=== PATIENT | female | born 1980 | race Two or more races ===

== ENCOUNTER 2019-11-03 07:00 | Inpatient (IN) | payer MEDICAID ==
[~2019-11-03] VITALS: Ht 157.5 cm; Wt 76.7 kg
--- NOTE | 2019-11-03 06:56 | NUR ---
Note luz in EDM - 11/03/19 at 0703 by QLE ED Nurse Note: Pt arrived with RA 829 c/o mid epigastric pain radiating to upper right quadrant and to back x 2 days with vomiting. per pt emesis was clear.
[2019-11-03 07:00] VITALS: BP 132/79
--- NOTE | 2019-11-03 07:00 | NUR ---
ED Nurse Note: Pt arrived with RA 829 c/o mid epigastric pain radiating to upper right quadrant and to back x 2 days with vomiting. per pt emesis was clear.
--- NOTE | 2019-11-03 07:04 | NUR ---
ED Nurse Note: Urine sample collected sent to lab
[2019-11-03] MEDS ORDERED: Mylanta II UD 30ml ORAL ONE (07:15)
[2019-11-03] MEDS ORDERED: Dicyclomine HCl 10mg/5ml oral soln ORAL ONE (07:15)
[2019-11-03] MEDS ORDERED: Lidocaine 2% Visc 15ml soln ORAL ONE (07:15)
[2019-11-03 07:42] LABS: APPEARANCE,URINE SLIGHTLY CLOUDY; BILIRUBIN, URINE NEGATIVE (NEGATIVE); GLUCOSE, URINE (UA) NEGATIVE (NEGATIVE); KETONES,URINE 4+ (NEGATIVE); LEUKOCYTE ESTERASE ,URINE 3+ (NEGATIVE); NITRITE,URINE NEGATIVE (NEGATIVE); PH,URINE 6 (4.5-8.0); PROTEIN,URINE 2+ (NEGATIVE); UROBILINOGEN,URINE 4 MG/DL (0.0-1.0)
[2019-11-03 07:45] LABS: COLOR,URINE YELLOW
[2019-11-03 07:47] LABS: EOSINOPHILS % (AUTO) 0.4 % (0.0-3.0); HEMATOCRIT 49.7 % (37.0-47.0); HEMOGLOBIN 15.7 G/DL (12.0-16.0); MEAN CORPUSCULAR VOLUME 99 FL (80-99); MONOCYTES % (AUTO) 7.1 % (1.0-10.0); NEUTROPHILS % (AUTO) 76.4 % (45.0-75.0); PLATELET COUNT 331 K/UL (150-450); RED BLOOD COUNT 4.99 M/UL (4.20-5.40); RED CELL DISTRIBUTION WIDTH 13.4 % (11.6-14.8); WHITE BLOOD COUNT 13.1 K/UL (4.8-10.8)
[2019-11-03 08:13] LABS: ALANINE AMINOTRANSFERASE 13 U/L (12-78); ALBUMIN 1.9 G/DL (3.4-5.0); ALBUMIN/GLOBULIN RATIO 0.6 (1.0-2.7); ALKALINE PHOSPHATASE 56 U/L (46-116); ANION GAP 12 mmol/L (5-15); ASPARTATE AMINO TRANSFERASE 19 U/L (15-37); BILIRUBIN,TOTAL 0.4 MG/DL (0.2-1.0); BLOOD UREA NITROGEN 10 mg/dL (7-18); CARBON DIOXIDE 16 MMOL/L (21-32); CHLORIDE 108 MMOL/L (98-107); CREATININE 0.4 MG/DL (0.55-1.30); POTASSIUM 3.2 MMOL/L (3.5-5.1); SODIUM 136 MMOL/L (136-145)
[2019-11-03] MEDS ORDERED: cefTRIAXone 1 GM in NS 55 ML IVPB ONE (08:15)
--- NOTE | 2019-11-03 08:16 | Emergency Room Report ---
History of Present Illness General Chief Complaint: Abdominal Pain Source: Patient Present Illness HPI 39-year-old female presents ED complaining of abdominal pain. Brought in by EMS from Street. States she is having the pain for the last 10 days. Epigastric, burning, 8 out of 10, nonradiating. Denies fevers or chills. Denies chest pain. Denies shortness of breath. Denies any diarrhea. Admits to alcohol use. No other aggravating relieving factors. Denies any other associated symptoms Allergies: Coded Allergies: No Known Allergies (Unverified , 11/03/19) COVID-19 Screening Contact w/high risk pt: No Recent Travel to affected area: No Experienced COVID-19 symptoms?: No COVID-19 Testing performed FOOD SERVER: No Patient History Past Medical History: none Past Surgical History: none Pertinent Family History: none Social History: Reports: alcohol use; Denies: smoking, drug use Now: No Immunizations: UTD Reviewed Nursing Documentation: PMH: Agreed; PSxH: Agreed Nursing Documentation-PMH Past Medical History: No Stated History Review of Systems All Other Systems: negative except mentioned in HPI Physical Exam Vital Signs Date Time Temp Pulse Resp B/P (MAP) Pulse Ox O2 Delivery O2 Flow Rate FiO2 11/03/19 06:55 98.2 124 18 132/79 (96) 99 Room Air Sp02 EP Interpretation: reviewed, normal General Appearance: no apparent distress, alert, GCS 15, non-toxic Head: normocephalic, atraumatic Eyes: bilateral eye normal inspection, bilateral eye PERRL ENT: hearing grossly normal, normal pharynx, no angioedema, normal voice Neck: full range of motion, supple/symm/no masses Respiratory: chest non-tender, lungs clear, normal breath sounds, speaking full sentences Cardiovascular #1: regular rate, rhythm, no edema Cardiovascular #2: 2+ carotid (R), 2+ carotid (L), 2+ radial (R), 2+ radial (L) , 2+ dorsalis pedis (R), 2+ dorsalis pedis (L) Gastrointestinal: normal bowel sounds, soft, non-distended, no guarding, no rebound, tenderness Rectal: deferred Genitourinary: normal inspection, no CVA tenderness Musculoskeletal: back normal, normal range of motion, gait/station normal, non- tender Neurologic: alert, motor strength/tone normal, oriented x3, sensory intact, responsive, speech normal Psychiatric: judgement/insight normal, memory normal, mood/affect normal, no suicidal/homicidal ideation Reflexes: 3+ bicep (R), 3+ bicep (L), 3+ tricep (R), 3+ tricep (L), 3+ knee (R) , 3+ knee (L) Skin: no rash Lymphatic: no adenopathy Medical Decision Making Diagnostic Impression: Primary Impression: Cholecystitis Additional Impression: UTI (urinary tract infection) Qualified Codes: N39.0 - Urinary tract infection, site not specified ER Course Hospital Course 39-year-old F presents to ED with epigastric/RUQ pain Differential diagnoses include: Appendicitis, cholecystitis, small bowel obstruction Clinical course Patient placed on stretcher. 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 After initial history and physical I ordered labs, IV fluids, UA, pain medication and Labs - leukocytosis noted, Hb/Hct stable. electrolytes ok. UA + bacteria Patient continues to have pain after medications given. CT ordered. CT shows any cholecystitis. Antibiotics given Dr Ojeda consulted Case discussed with Dr. Grey and he agreed to accept the patient to his service for further care and support I feel this is a highly complex case requiring extensive working including EKG/ Rhythm strip, Xray/CT/US, Blood/urine lab work, repeat exams while in ED, and administration of strong opiates/narcotics for pain control, admission to hospital or close patient follow up. Diagnosis - cholecystitis, UTI Patient admitted to hospital in serious condition Labs Test 11/03/19 07:05 11/03/19 07:41 White Blood Count 13.1 K/UL (4.8-10.8) Red Blood Count 4.99 M/UL (4.20-5.40) Hemoglobin 15.7 G/DL (12.0-16.0) Hematocrit 49.7 % (37.0-47.0) Mean Corpuscular Volume 99 FL (80-99) Mean Corpuscular Hemoglobin 31.5 PG (27.0-31.0) Mean Corpuscular Hemoglobin Concent 31.7 G/DL (32.0-36.0) Red Cell Distribution Width 13.4 % (11.6-14.8) Platelet Count 331 K/UL (150-450) Mean Platelet Volume 10.2 FL (6.5-10.1) Neutrophils (%) (Auto) 76.4 % (45.0-75.0) Lymphocytes (%) (Auto) 15.0 % (20.0-45.0) Monocytes (%) (Auto) 7.1 % (1.0-10.0) Eosinophils (%) (Auto) 0.4 % (0.0-3.0) Basophils (%) (Auto) 1.0 % (0.0-2.0) Urine Color Yellow Urine Appearance Slightly cloudy Urine pH 6 (4.5-8.0) Urine Specific [place] 1.025 (1.005-1.035) Urine Protein 2+ (NEGATIVE) Urine Glucose (UA) Negative (NEGATIVE) Urine Ketones 4+ (NEGATIVE) Urine Blood 2+ (NEGATIVE) Urine Nitrite Negative (NEGATIVE) Urine Bilirubin Negative (NEGATIVE) Urine Urobilinogen 4 MG/DL (0.0-1.0) Urine Leukocyte Esterase 3+ (NEGATIVE) Urine RBC 15-20 /HPF (0 - 2) Urine WBC Tntc /HPF (0 - 2) Urine Squamous Epithelial Cells Many /LPF (NONE/OCC) Urine Amorphous Sediment Few /LPF (NONE) Urine Bacteria Moderate /HPF (NONE) Urine Mucus Moderate /LPF (NONE/OCC) Urine HCG, Qualitative Negative (NEGATIVE) Sodium Level 136 MMOL/L (136-145) Potassium Level 3.2 MMOL/L (3.5-5.1) Chloride Level 108 MMOL/L (98-107) Carbon Dioxide Level 16 MMOL/L (21-32) Anion Gap 12 mmol/L (5-15) Blood Urea Nitrogen 10 mg/dL (7-18) Creatinine 0.4 MG/DL (0.55-1.30) Estimat Glomerular Filtration Rate > 60 mL/min (>60) Glucose Level 76 MG/DL (74-106) Calcium Level 6.0 MG/DL (8.5-10.1) Total Bilirubin 0.4 MG/DL (0.2-1.0) Aspartate Amino Transf (AST/SGOT) 19 U/L (15-37) Alanine Aminotransferase (ALT/SGPT) 13 U/L (12-78) Alkaline Phosphatase 56 U/L (46-116) Total Protein 5.3 G/DL (6.4-8.2) Albumin 1.9 G/DL (3.4-5.0) Globulin 3.4 g/dL Albumin/Globulin Ratio 0.6 (1.0-2.7) Lipase 74 U/L (73-393) CT/MRI/US Diagnostic Results CT/MRI/US Diagnostic Results : Imaging Test Ordered: CT A/P Impression Procedure: CT Abdomen Pelvis WO Contrast Indication: Abdominal pain Technique: Noncontrast CT of the abdomen and pelvis utilizing automated exposure control. Axial, sagittal and coronal reformats presented. CT dose: Total DLP 419.8 mGycm; CTDI vol 7.90 mGy Comparison: None Findings: Please note that evaluation of the abdominal and pelvic viscera and vascular structures is limited without the use of intravenous and oral contrast. Within these limitations the following observations are made: Dependent atelectatic changes noted in the lung bases. Heart size within normal limits. Partially imaged breast tissue appears grossly symmetric. There is a sizable gallstone which measures approximately 3 cm. There is mild gallbladder distention. There is also gallbladder wall thickening and pericholecystic inflammatory changes. No intrahepatic or extrahepatic biliary duct dilatation appreciated. Hepatic contour is smooth and liver appears normal in size. Noncontrast evaluation of the spleen, adrenal glands and pancreas grossly unremarkable. No peripancreatic inflammatory changes. Kidneys are symmetric in size. There is no urinary tract stone, hydronephrosis or perinephric stranding. Bladder and noncontrast evaluation of the reproductive organs grossly unremarkable. There is no free intraperitoneal air. There is no evidence of small bowel obstruction. The appendix is normal and there are no periappendiceal inflammatory changes. The abdominal aorta is normal in caliber. No acute osseous abnormality. IMPRESSION: Limited exam without intravenous and oral contrast. Within these limitations: * Cholelithiasis with gallbladder distention, gallbladder wall thickening and pericholecystic inflammatory changes suggesting acute cholecystitis. Correlation with clinical findings recommended. * No appreciable intrahepatic or extrahepatic biliary ductal dilatation. The CT scanner at [facility] is accredited by the [employer] and the scans are performed using protocols designed to limit radiation exposure to as low as reasonably achievable to attain images of sufficient resolution adequate for diagnostic evaluation. Last Vital Signs Date Time Temp Pulse Resp B/P (MAP) Pulse Ox O2 Delivery O2 Flow Rate FiO2 11/03/19 07:00 124 18 Room Air 11/03/19 07:00 98.2 132/79 99 Status: improved Disposition: ADMITTED INPATIENT Condition: Serious Scripts Cephalexin* (KEFLEX*) 500 Mg Capsule 500 MG ORAL EVERY 6 HOURS for 7 Days, CAP Prov: Brendan Mcelroy MD 11/03/19 Ondansetron Odt* (ZOFRAN ODT*) 4 Mg Tab.rapdis 4 MG BC EVERY 6 HOURS PRN for Nausea & Vomiting, #10 TAB 0 Refills Prov: Brendan Mcelroy MD 11/03/19 Famotidine* (Pepcid 20mg tablet*) 20 Mg Tablet 20 MG ORAL DAILY, #30 TAB 0 Refills Prov: Brendan Mcelroy MD 11/03/19 Acetaminophen* (TYLENOL EXTRA STRENGTH*) 500 Mg Tablet 500 MG ORAL Q8H PRN for Prn Headache/Temp > 101, #30 TAB 0 Refills Prov: Brendan Mcelroy MD 11/03/19 Referrals: NOT CHOSEN IPA/,REFERRING (PCP) Brendan Mcelroy MD Nov 03, 2019 08:16
[2019-11-03 08:52] VITALS: BP 155/83
[2019-11-03] MEDS ORDERED: CEPHALEXIN500 MG ORAL (09:07)
[2019-11-03] MEDS ORDERED: TYLENOL EXTRA500 MG ORAL (09:07)
[2019-11-03] MEDS ORDERED: FAMOTIDINE20 MG ORAL (09:07)
[2019-11-03] MEDS ORDERED: ONDANSETRON ODT4 MG BC (09:07)
--- NOTE | 2019-11-03 09:13 | NUR ---
6ER DISCHARGE NOTE: Patient is cleared to be discharged per ERMD, pt is aox4, on room air, with stable vital signs. pt was given dc and prescription instructions, pt was able to verbalize understanding, pt id band and iv site removed without complications. pt is able to ambulate with steady gait. pt took all belongings. pt given meal and drinks.
[2019-11-03] MEDS ORDERED: Ketorolac 30mg Inj IV ONE (09:15)
--- NOTE | 2019-11-03 09:28 | NUR ---
ED Nurse Note: Pt still reporting pain after dc, informed ermd.
[2019-11-03] MEDS ORDERED: Morphine Sulfate 2mg/ml Inj(IV/IM USE ONLY) IM ONE (09:30)
--- NOTE | 2019-11-03 09:44 | NUR ---
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
--- NOTE | 2019-11-03 10:04 | NUR ---
ED Nurse Note: Pt returned from CT
--- NOTE | 2019-11-03 10:28 | Diagnostic Imaging Report ---
Indication: Abdominal pain Technique: Noncontrast CT of the abdomen and pelvis utilizing automated exposure control. Axial, sagittal and coronal reformats presented. CT dose: Total DLP 419.8 mGycm; CTDI vol 7.90 mGy Comparison: None Findings: Please note that evaluation of the abdominal and pelvic viscera and vascular structures is limited without the use of intravenous and oral contrast. Within these limitations the following observations are made: Dependent atelectatic changes noted in the lung bases. Heart size within normal limits. Partially imaged breast tissue appears grossly symmetric. There is a sizable gallstone which measures approximately 3 cm. There is mild gallbladder distention. There is also gallbladder wall thickening and pericholecystic inflammatory changes. No intrahepatic or extrahepatic biliary duct dilatation appreciated. Hepatic contour is smooth and liver appears normal in size. Noncontrast evaluation of the spleen, adrenal glands and pancreas grossly unremarkable. No peripancreatic inflammatory changes. Kidneys are symmetric in size. There is no urinary tract stone, hydronephrosis or perinephric stranding. Bladder and noncontrast evaluation of the reproductive organs grossly unremarkable. There is no free intraperitoneal air. There is no evidence of small bowel obstruction. The appendix is normal and there are no periappendiceal inflammatory changes. The abdominal aorta is normal in caliber. No acute osseous abnormality. IMPRESSION: Limited exam without intravenous and oral contrast. Within these limitations: * Cholelithiasis with gallbladder distention, gallbladder wall thickening and pericholecystic inflammatory changes suggesting acute cholecystitis. Correlation with clinical findings recommended. * No appreciable intrahepatic or extrahepatic biliary ductal dilatation. The CT scanner at [facility] is accredited by the [employer] and the scans are performed using protocols designed to limit radiation exposure to as low as reasonably achievable to attain images of sufficient resolution adequate for diagnostic evaluation.
--- NOTE | 2019-11-03 10:39 | NUR ---
ED Nurse Note: Inserted new IV line; patent and intact.
[2019-11-03] MEDS ORDERED: Piperacillin/Tazobactam 3.375 GM in NS 110 ML IVPB ONE (11:30)
--- NOTE | 2019-11-03 13:08 | NUR ---
ED Nurse Note: Report given to Jose Charge nurse for continuity of care. CRN aware that pt is not to go to OR until COVID results return
--- NOTE | 2019-11-03 13:10 | NUR ---
TRANSFER TO FLOOR: Patient transferred to ms as ordered, per ermd. Report given to TERRY steele. Belongings and medications given to pt.
--- NOTE | 2019-11-03 13:15 | Consultation ---
DATE OF CONSULTATION: 11/03/2019 PREOPERATIVE CONSULTATION CONSULTING PHYSICIAN: Janey Ulloa MD REFERRING PHYSICIAN: ER physician, Dr. Mcelroy. REASON FOR CONSULTATION: Abdominal pain. HISTORY OF PRESENT ILLNESS: This is a 39-year-old female, who presented to emergency room complaining of abdominal pain for two days. She stated that pain is located in right upper quadrant with radiation to her back. This pain has been associated with nausea and vomiting. She denies any fever, cough, dysuria, or frequency. She denies any previous history of similar pain. She claims that she has history of jaundice. PAST MEDICAL HISTORY: She denies allergies, asthma, diabetes, hypertension, cardiac and renal diseases. PAST SURGICAL HISTORY: None. MEDICATIONS: None. SOCIAL HISTORY: The patient is a 39-year-old female, who is single without any children. She is unemployed and smokes and drinks occasionally and uses marijuana occasionally. REVIEW OF SYSTEMS: Noncontributory. PHYSICAL EXAMINATION: GENERAL: The patient appeared to be a 39-year-old female, lying on the gurney complaining of abdominal pain. HEENT: Head is normocephalic and atraumatic. Eyes, pupils are equal, round, and reactive to light. Mouth is clear. NECK: There is no palpable thyromegaly or adenopathy. CHEST: Clear to auscultation and percussion. HEART: There is no gallop or murmur. S1 and S2 are within normal limits. ABDOMEN: Mildly obese, but soft. She has severe tenderness at the right upper quadrant. There is no palpable organomegaly and bowel sounds are audible. GENITAL: Deferred. EXTREMITIES: Within normal limits. LABORATORY DATA: CBC has shown a WBC of 13,000 with a left shift. Chemistry is within normal limits. CAT scan of the abdomen has been interpreted as acute cholecystitis. ASSESSMENT: Cholecystitis and cholelithiasis. PLAN: The patient is severely tender and probably she has acute cholecystitis. So, the decision was made to perform a laparoscopic cholecystectomy, possible open cholecystectomy. The risks and benefits have been explained to her. She understood and granted consent for it. Janey Ulloa M.D. DR: BELLE JOB#: [id number] CC:
[2019-11-03 13:28] LABS: INR 1.1 (0.9-1.1)
--- NOTE | 2019-11-03 13:44 | General Progress Note ---
Assessment/Plan Problem List: (1) Cholecystitis ICD Codes: K81.9 - Cholecystitis, unspecified SNOMED: [id number] Assessment/Plan: npo ivf abx pain control pending surg today Subjective Allergies: Coded Allergies: No Known Allergies (Unverified , 11/03/19) Objective Last 24 Hour Vital Signs Date Time Temp Pulse Resp B/P (MAP) Pulse Ox O2 Delivery O2 Flow Rate FiO2 11/03/19 10:00 98.2 11/03/19 09:12 98.2 11/03/19 08:52 98.2 124 18 155/83 100 Room Air 11/03/19 07:00 124 18 Room Air 11/03/19 07:00 98.2 124 18 132/79 99 Room Air 11/03/19 06:55 98.2 124 18 132/79 (96) 99 Room Air Intake and Output 11/02/19 11/03/19 19:00 07:00 # Voids 1 Laboratory Tests 11/03/19 07:05: White Blood Count 13.1H, Red Blood Count 4.99, Hemoglobin 15.7, Hematocrit 49.7H , Mean Corpuscular Volume 99, Mean Corpuscular Hemoglobin 31.5H, Mean Corpuscular Hemoglobin Concent 31.7L, Red Cell Distribution Width 13.4, Platelet Count 331, Mean Platelet Volume 10.2H, Neutrophils (%) (Auto) 76.4H, Lymphocytes (%) (Auto) 15.0L, Monocytes (%) (Auto) 7.1, Eosinophils (%) (Auto) 0.4, Basophils (%) (Auto) 1.0, Urine Color Yellow, Urine Appearance Slightly cloudy, Urine pH 6, Urine Specific [place] 1.025, Urine Protein 2+H, Urine Glucose (UA) Negative, Urine Ketones 4+H, Urine Blood 2+H, Urine Nitrite Negative, Urine Bilirubin Negative, Urine Urobilinogen 4H, Urine Leukocyte Esterase 3+H, Urine RBC 15-20H, Urine WBC TntcH, Urine Squamous Epithelial Cells ManyH, Urine Amorphous Sediment FewH, Urine Bacteria ModerateH, Urine Mucus ModerateH, Urine HCG, Qualitative Negative 11/03/19 07:41: Sodium Level 136, Potassium Level 3.2L, Chloride Level 108H, Carbon Dioxide Level 16L, Anion Gap 12, Blood Urea Nitrogen 10, Creatinine 0.4L, Estimat Glomerular Filtration Rate > 60, Glucose Level 76, Calcium Level 6.0L, Total Bilirubin 0.4, Aspartate Amino Transf (AST/SGOT) 19, Alanine Aminotransferase ( ALT/SGPT) 13, Alkaline Phosphatase 56, Total Protein 5.3L, Albumin 1.9L, Globulin 3.4, Albumin/Globulin Ratio 0.6L, Lipase 74 11/03/19 12:55: Prothrombin Time [Pending], Prothromb Time International Ratio [Pending], Activated Partial Thromboplast Time [Pending] Height (Feet): 5 Height (Inches): 2.00 Weight (Pounds): 170 General Appearance: alert EENT: PERRL/EOMI Neck: normal alignment Cardiovascular: normal rate Respiratory/Chest: decreased breath sounds Abdomen: hypoactive bowel sounds, tender Extremities: non-tender Brandon Crane MD Nov 03, 2019 13:44
--- NOTE | 2019-11-03 14:00 | NUR ---
NURSE NOTES: Patient admitted from ER. PIV on right AC intact. No current complaints of pain. Admission orders confirmed with Dr. Grey. Bed low and locked, call light within reach. Will continue to monitor.
[2019-11-03] MEDS: D5NS 1,000 ML IV SCH (14:19)
--- NOTE | 2019-11-03 14:34 | NUR ---
CASE MANAGEMENT:NOTE SURGERY TODAY [facility]
[2019-11-03 16:00] VITALS: BP 125/68
[2019-11-03] MEDS: Morphine Sulfate 4mg/ml Inj (IV USE ONLY) IVP PRN ×2 (16:52→21:14)
--- NOTE | 2019-11-03 20:07 | NUR ---
HAND-OFF: Report given to Prince CRAIG. Pt is NPO post midnight for surgery tomorrow.
[2019-11-03 21:00] VITALS: BP 122/76
[2019-11-03] MEDS: Piperacillin/Tazobactam 3.375 GM in NS 110 ML IVPB SCH (21:15)
[2019-11-04] VITALS (13 sets, daily range): BP systolic 121–162; BP diastolic 64–97
[2019-11-04] MEDS: D5NS 1,000 ML IV SCH ×2 (00:19→09:53)
[2019-11-04] MEDS: Morphine Sulfate 4mg/ml Inj (IV USE ONLY) IVP PRN ×2 (02:01→07:01)
[2019-11-04] MEDS: Piperacillin/Tazobactam 3.375 GM in NS 110 ML IVPB SCH ×4 (06:31→21:18)
--- NOTE | 2019-11-04 07:19 | NUR ---
HAND-OFF: Report given to KIARA Camacho. Patient stable. Plan of care endorsed.
[2019-11-04 07:25] LABS: BASOPHILS % (AUTO) 0.8 % (0.0-2.0); EOSINOPHILS % (AUTO) 1.9 % (0.0-3.0); HEMATOCRIT 37.6 % (37.0-47.0); HEMOGLOBIN 12.2 G/DL (12.0-16.0); LYMPHOCYTES % (AUTO) 20.4 % (20.0-45.0); MEAN CORPUSCULAR VOLUME 99 FL (80-99); MONOCYTES % (AUTO) 8.5 % (1.0-10.0); NEUTROPHILS % (AUTO) 68.4 % (45.0-75.0); PLATELET COUNT 260 K/UL (150-450); WHITE BLOOD COUNT 7.7 K/UL (4.8-10.8)
--- NOTE | 2019-11-04 07:40 | NUR ---
NURSE NOTES: Received report from KIARA Morrison. Patient in bed, awake and alert. On room air, no signs of distress or labored breathing. IV intact, patent, and infusing IV antibiotics. Bed in lowest position with call light in reach. Will continue with plan of care.
[2019-11-04 07:58] LABS: ALANINE AMINOTRANSFERASE 28 U/L (12-78); ALBUMIN 2.3 G/DL (3.4-5.0); ALBUMIN/GLOBULIN RATIO 0.5 (1.0-2.7); ALKALINE PHOSPHATASE 90 U/L (46-116); ANION GAP 8 mmol/L (5-15); ASPARTATE AMINO TRANSFERASE 28 U/L (15-37); BILIRUBIN,TOTAL 0.4 MG/DL (0.2-1.0); BLOOD UREA NITROGEN 9 mg/dL (7-18); CARBON DIOXIDE 26 MMOL/L (21-32); CHLORIDE 103 MMOL/L (98-107); CHOLESTEROL 122 MG/DL (< 200); CREATININE 0.6 MG/DL (0.55-1.30); HDL CHOLESTEROL 40 MG/DL (40-60); POTASSIUM 3.7 MMOL/L (3.5-5.1); SODIUM 137 MMOL/L (136-145); TRIGLYCERIDES 53 MG/DL (30-150)
--- NOTE | 2019-11-04 09:49 | History & Physical ---
History and Physical History & Physicial seen and examined. Full Diction completed on 940 hours Sagrario Grey MD Nov 04, 2019 09:49
[2019-11-04] MEDS: Pantoprazole Inj IVP SCH (09:53)
--- NOTE | 2019-11-04 09:54 | General Progress Note ---
Assessment/Plan Assessment/Plan: A/P : 1- Sepsis 2- Acute cholecystitis Plan: C/w empiricall abx Will followup with surgical plan Subjective Allergies: Coded Allergies: No Known Allergies (Unverified , 11/03/19) Objective Last 24 Hour Vital Signs Date Time Temp Pulse Resp B/P (MAP) Pulse Ox O2 Delivery O2 Flow Rate FiO2 11/04/19 04:00 98.9 82 20 121/64 (83) 97 11/03/19 21:44 98.7 11/03/19 21:00 98.2 80 18 122/76 (91) 98 11/03/19 21:00 Room Air 11/03/19 16:00 98.7 77 18 125/68 (87) 97 11/03/19 13:57 98.2 79 17 137/86 100 Room Air 11/03/19 13:29 Room Air 11/03/19 10:00 98.2 Intake and Output 11/03/19 11/04/19 19:00 07:00 Intake Total 1165 ml Balance 1165 ml Intake IV Total 1165 ml # Voids 1 1 Laboratory Tests 11/03/19 12:55: Prothrombin Time 11.7H, Prothromb Time International Ratio 1.1, Activated Partial Thromboplast Time 35H 11/04/19 06:50: White Blood Count 7.7, Red Blood Count 3.80L, Hemoglobin 12.2, Hematocrit 37.6, Mean Corpuscular Volume 99, Mean Corpuscular Hemoglobin 32.1H, Mean Corpuscular Hemoglobin Concent 32.4, Red Cell Distribution Width 13.0, Platelet Count 260, Mean Platelet Volume 9.2, Neutrophils (%) (Auto) 68.4, Lymphocytes (%) (Auto) 20.4, Monocytes (%) (Auto) 8.5, Eosinophils (%) (Auto) 1.9, Basophils (%) (Auto ) 0.8, Sodium Level 137, Potassium Level 3.7, Chloride Level 103, Carbon Dioxide Level 26, Anion Gap 8, Blood Urea Nitrogen 9, Creatinine 0.6, Estimat Glomerular Filtration Rate > 60, Glucose Level 98, Hemoglobin A1c 5.5, Calcium Level 8.0#L, Total Bilirubin 0.4, Aspartate Amino Transf (AST/SGOT) 28, Alanine Aminotransferase (ALT/SGPT) 28, Alkaline Phosphatase 90, Total Protein 6.6, Albumin 2.3L, Globulin 4.3, Albumin/Globulin Ratio 0.5L, Triglycerides Level 53 , Cholesterol Level 122, LDL Cholesterol 66, HDL Cholesterol 40, Cholesterol/ HDL Ratio 3.1L Height (Feet): 5 Height (Inches): 2.00 Weight (Pounds): 169 Sagrario Grey MD Nov 04, 2019 09:54
--- NOTE | 2019-11-04 14:02 | Infectious Diseases Prog Note ---
Assessment/Plan Problems: (1) Cholecystitis Assessment & Plan: status post cholecystectomy continue Zosyn for now surgery is following (2) UTI (urinary tract infection) Assessment & Plan: with diphtheroids, ready on Zosyn Subjective Allergies: Coded Allergies: No Known Allergies (Unverified , 11/03/19) Objective Vital Signs Last 24 Hour Vital Signs Date Time Temp Pulse Resp B/P (MAP) Pulse Ox O2 Delivery O2 Flow Rate FiO2 11/04/19 08:00 98.2 84 18 123/74 (90) 97 11/04/19 04:00 98.9 82 20 121/64 (83) 97 11/03/19 21:44 98.7 11/03/19 21:00 98.2 80 18 122/76 (91) 98 11/03/19 21:00 Room Air 11/03/19 16:00 98.7 77 18 125/68 (87) 97 Height (Feet): 5 Height (Inches): 2.00 Weight (Pounds): 169 Microbiology Date/Time Source Procedure Growth Status 11/03/19 12:40 Nasopharynx SARS-CoV-2 RdRp Gene Assay - Final Complete 11/03/19 07:05 Urine,Clean Catch Urine Culture - Preliminary Diphtheroids Resulted Laboratory Tests Test 11/04/19 06:50 White Blood Count 7.7 K/UL (4.8-10.8) Red Blood Count 3.80 M/UL (4.20-5.40) L Hemoglobin 12.2 G/DL (12.0-16.0) Hematocrit 37.6 % (37.0-47.0) Mean Corpuscular Volume 99 FL (80-99) Mean Corpuscular Hemoglobin 32.1 PG (27.0-31.0) H Mean Corpuscular Hemoglobin Concent 32.4 G/DL (32.0-36.0) Red Cell Distribution Width 13.0 % (11.6-14.8) Platelet Count 260 K/UL (150-450) Mean Platelet Volume 9.2 FL (6.5-10.1) Neutrophils (%) (Auto) 68.4 % (45.0-75.0) Lymphocytes (%) (Auto) 20.4 % (20.0-45.0) Monocytes (%) (Auto) 8.5 % (1.0-10.0) Eosinophils (%) (Auto) 1.9 % (0.0-3.0) Basophils (%) (Auto) 0.8 % (0.0-2.0) Sodium Level 137 MMOL/L (136-145) Potassium Level 3.7 MMOL/L (3.5-5.1) Chloride Level 103 MMOL/L (98-107) Carbon Dioxide Level 26 MMOL/L (21-32) Anion Gap 8 mmol/L (5-15) Blood Urea Nitrogen 9 mg/dL (7-18) Creatinine 0.6 MG/DL (0.55-1.30) Estimat Glomerular Filtration Rate > 60 mL/min (>60) Glucose Level 98 MG/DL (74-106) Hemoglobin A1c 5.5 % (4.3-6.0) Calcium Level 8.0 MG/DL (8.5-10.1) #L Total Bilirubin 0.4 MG/DL (0.2-1.0) Aspartate Amino Transf (AST/SGOT) 28 U/L (15-37) Alanine Aminotransferase (ALT/SGPT) 28 U/L (12-78) Alkaline Phosphatase 90 U/L (46-116) Total Protein 6.6 G/DL (6.4-8.2) Albumin 2.3 G/DL (3.4-5.0) L Globulin 4.3 g/dL Albumin/Globulin Ratio 0.5 (1.0-2.7) L Triglycerides Level 53 MG/DL (30-150) Cholesterol Level 122 MG/DL (< 200) LDL Cholesterol 66 mg/dL (<100) HDL Cholesterol 40 MG/DL (40-60) Cholesterol/HDL Ratio 3.1 (3.3-4.4) L Current Medications Medications (Trade) Dose Ordered Sig/Misa Route PRN Reason Start Time Stop Time Status Last Admin Dose Admin Dextrose/Sodium Chloride 1,000 ml @ 100 mls/hr Q10H IV 11/03/19 14:19 12/03/19 14:18 11/03/19 14:19 Morphine Sulfate (Morphine Sulfate) 4 mg Q4H PRN IVP For Pain 11/03/19 14:15 11/10/19 14:14 11/04/19 07:01 Ondansetron HCl (Zofran) 4 mg Q6H PRN IVP Nausea & Vomiting 11/03/19 14:15 12/03/19 14:14 Pantoprazole (Protonix) 40 mg DAILY IVP 11/04/19 09:00 12/04/19 08:59 11/04/19 09:53 Piperacillin Sod/ Tazobactam Sod 3.375 gm/Sodium Chloride 110 ml @ 27.5 mls/hr Q8HR IVPB 11/03/19 22:00 11/10/19 21:59 11/04/19 06:31 Homa Silvestre M.D. Nov 04, 2019 14:02
--- NOTE | 2019-11-04 14:42 | NUR ---
NURSE NOTES: PATIENT IS OFF THE UNIT FOR SURGERY.
[2019-11-04] MEDS ORDERED: Midazolam 2mg/2ml Inj ONE (14:44)
[2019-11-04] MEDS ORDERED: fentaNYL 100 mcg/2 mL IV ONE (14:44)
[2019-11-04] MEDS ORDERED: Iothalamate Meglumine 60% 30ML INJ ONE (14:46)
--- NOTE | 2019-11-04 14:52 | Pre-Procedure Note/Attestation ---
Pre-Procedure Note/Attestation Complete Prior to Procedure Planned Procedure: not applicable Procedure Narrative: Laparoscopic cholecystectomy possible open cholcystectomy Indications for Procedure Pre-Operative Diagnosis: cholecystitis & cholelithiasis Attestation I attest that I discussed the nature of the procedure; its benefits; risks and complications; and alternatives (and the risks and benefits of such alternatives ), prior to the procedure, with the patient (or the patient's legal insurance claim representative). I attest that, if there was a reasonable possibility of needing a blood transfusion, the patient (or the patient's legal insurance claim representative) was given the [facility] standardized written summary, pursuant to the [facility] Blood Safety Act ([place] Health and Safety Code # 1645, as amended). I attest that I re-evaluated the patient just prior to the surgery and that there has been no change in the patient's H&P, except as documented below: Janey Ulloa MD Nov 04, 2019 14:52
[2019-11-04] MEDS ORDERED: Rocuronium Bromide 100mg/10ml Inj IV ONE (14:59)
[2019-11-04] MEDS ORDERED: NS Irrig 1000ml ONE (15:00)
[2019-11-04] MEDS ORDERED: Succinylcholine 20mg/ml 10ml vial ONE (15:00)
[2019-11-04] MEDS ORDERED: Sterile Water Irrig 1000ml IRRIG ONE (15:00)
[2019-11-04] MEDS ORDERED: Hydromorphone 0.5mg/0.5ml inj IVP PRN ×2 (15:30→17:00)
[2019-11-04] MEDS ORDERED: DiphenhydrAMINE 50mg/ml Inj IVP PRN (15:30)
[2019-11-04] MEDS ORDERED: fentaNYL 100 mcg/2 mL IV PRN (15:30)
[2019-11-04] MEDS ORDERED: LORazepam Inj 2mg/ml 1ml IV PRN (15:30)
[2019-11-04] MEDS ORDERED: Metoclopramide 10mg/2ml Inj IVP PRN ×2 (15:30→17:00)
[2019-11-04] MEDS ORDERED: Metoclopramide 10mg/2ml Inj ONE (15:36)
[2019-11-04] MEDS ORDERED: Glycopyrrolate 0.2mg/ml 1ml Vial ONE (15:36)
[2019-11-04] MEDS ORDERED: Lidocaine 1% MPF 10mg/ml 5ml ONE (15:36)
[2019-11-04] MEDS ORDERED: Neostigmine 1mg/ml 10ml Inj ONE (15:36)
--- NOTE | 2019-11-04 15:51 | Anethesia Preoperative Eval ---
Anesthesia Pre-op PMH/ROS General Date of Evaluation: Nov 04, 2019 Time of Evaluation: 14:50 Anesthesiologist: jennyfer ASA Score: ASA 2 Mallampati Score Class I : Soft palate, uvula, fauces, pillars visible Class II: Soft palate, uvula, fauces visible Class III: Soft palate, base of uvula visible Class IV: Only hard plate visible Mallampati Classification: Class II Surgeon: Atilio Diagnosis: cholecystitis Surgical Procedure: lap mayra Anesthesia History: none Social History: smoking, current smoker, alcohol use, drug use Family History: no anesthesia problems Allergies: Coded Allergies: No Known Allergies (Unverified , 11/03/19) Medications: see eMAR Patient NPO?: Yes NPO Date: Nov 04, 2019 NPO Time: 07:00 Past Medical History Cardiovascular: Denies: HTN, CAD, OR, valve dz, arrhythmia, other Pulmonary: Denies: asthma, COPD, LINDA, other Gastrointestinal/Genitourinary: Denies: GERD, CRI, ESRD, other Neurologic/Psychiatric: Denies: dementia, CVA, depression/anxiety, TIA, other Endocrine: Denies: DM, hypothyroidism, steroids, other HEENT: Denies: cataract (L), cataract (R), glaucoma, TUNUNAK (L), TUNUNAK (R), other Hematology/Immune: Denies: anemia, DVT, bleeding disorder, other Musculoskeletal/Integumentary: Denies: OA, RA, DJD, DDD, edema, other PSxH Narrative: c/section Anesthesia Pre-op Phys. Exam Physician Exam Last Vital Signs Date Time Temp Pulse Resp B/P (MAP) Pulse Ox O2 Delivery O2 Flow Rate FiO2 11/04/19 08:00 98.2 84 18 123/74 (90) 97 11/03/19 21:00 Room Air Constitutional: NAD Neurologic: CN 2-12 intact Cardiovascular: RRR Respiratory: CTA Gastrointestinal: S/NT/ND Airway Exam Mallampati Classification 2 Mallampati Score: Class II MO: full Neck: thick TMD: 2fb Teeth: missing, other - refused to take off nose piercing, tongue piercing and lip piercing x2; explained the risk Anesthesia Pre-op A/P Labs Hematology Test 11/04/19 06:50 White Blood Count 7.7 K/UL (4.8-10.8) Red Blood Count 3.80 M/UL (4.20-5.40) L Hemoglobin 12.2 G/DL (12.0-16.0) Hematocrit 37.6 % (37.0-47.0) Mean Corpuscular Volume 99 FL (80-99) Mean Corpuscular Hemoglobin 32.1 PG (27.0-31.0) H Mean Corpuscular Hemoglobin Concent 32.4 G/DL (32.0-36.0) Red Cell Distribution Width 13.0 % (11.6-14.8) Platelet Count 260 K/UL (150-450) Mean Platelet Volume 9.2 FL (6.5-10.1) Neutrophils (%) (Auto) 68.4 % (45.0-75.0) Lymphocytes (%) (Auto) 20.4 % (20.0-45.0) Monocytes (%) (Auto) 8.5 % (1.0-10.0) Eosinophils (%) (Auto) 1.9 % (0.0-3.0) Basophils (%) (Auto) 0.8 % (0.0-2.0) Chemistry Test 11/04/19 06:50 Sodium Level 137 MMOL/L (136-145) Potassium Level 3.7 MMOL/L (3.5-5.1) Chloride Level 103 MMOL/L (98-107) Carbon Dioxide Level 26 MMOL/L (21-32) Anion Gap 8 mmol/L (5-15) Blood Urea Nitrogen 9 mg/dL (7-18) Creatinine 0.6 MG/DL (0.55-1.30) Estimat Glomerular Filtration Rate > 60 mL/min (>60) Glucose Level 98 MG/DL (74-106) Hemoglobin A1c 5.5 % (4.3-6.0) Calcium Level 8.0 MG/DL (8.5-10.1) #L Total Bilirubin 0.4 MG/DL (0.2-1.0) Aspartate Amino Transf (AST/SGOT) 28 U/L (15-37) Alanine Aminotransferase (ALT/SGPT) 28 U/L (12-78) Alkaline Phosphatase 90 U/L (46-116) Total Protein 6.6 G/DL (6.4-8.2) Albumin 2.3 G/DL (3.4-5.0) L Globulin 4.3 g/dL Albumin/Globulin Ratio 0.5 (1.0-2.7) L Triglycerides Level 53 MG/DL (30-150) Cholesterol Level 122 MG/DL (< 200) LDL Cholesterol 66 mg/dL (<100) HDL Cholesterol 40 MG/DL (40-60) Cholesterol/HDL Ratio 3.1 (3.3-4.4) L Studies Pre-op Studies: EKG - Sr Risk Assessment & Plan Plan: General Pre-Antibiotics Drug: zosyn Given Within 1 Hr of Incision: Yes Time Given: 15:00 Jenna Anders SPORTS TEAM MANAGER Nov 04, 2019 15:51
--- NOTE | 2019-11-04 16:57 | NUR ---
CASE MANAGEMENT: INITIAL REVIEW 39YR OLD FEMALE BIBA FROM [facility] CC: ABDOMINAL PAIN X10 WEEKS SI: S/P LAPAROSCOPIC CHOLECYSTECTOMY CHOLECYSTITIS . UTI DIPHTHEROIDS 98.2 82 20 121/64 97% ON RA CA+ 6.0 K+3.2 CO2 16 ALB 1.9 IS:IV NS BOLUS X1 IV ROCEPHIN X1 IV ZOFRAN X1 IV PEPCID X1 BENTYL PO X1 LIDOCAINE PO X1 MYLANTA PO X1 IV TORADOL X1 IV MORPHINE SULFATE X1 CT Abdomen Pelvis WO Contrast-Cholelithiasis with gallbladder distention, gallbladder wall thickening and pericholecystic inflammatory changes suggesting acute cholecystitis. \: [facility] CASE MANAGEMENT: REVIEW 11/04/19 SI:CHOLECYSTITIS . UTI 98.9 82 20 121/64 97% ON RA CA+ 8.0 ALB 2.3 IS:IN SURGERY NOW CONSENT FOR LAPAROSCOPIC CHOLECYSTECTOMY, POSSIBLE OPEN CHOLECYSTECTOMY IV D5/NS @100ML/HR IV ZOSYN TID IV PROTONIX QD IV MORPHINE SULFATE Q4HR/PRN \: [facility]
[2019-11-04] MEDS ORDERED: HYDROmorphone 1mg/ml Carpuject IVP PRN (17:00)
[2019-11-04] MEDS ORDERED: Acetaminophen 650 MG SUPP RECTAL PRN (17:00)
--- NOTE | 2019-11-04 17:00 | Brief Operative Note ---
Immediate Post Operative Note Operative Note Pre-op Diagnosis: cholecystitis & cholelithiasis Procedure: Laparoscopic Cholecystectomy Post-op Diagnosis: impacted stone in neck of gall bladder Post-op Diagnosis: same as pre-op Findings: consistent w/pre-op dx studies Surgeon: MD Po E Commerce Manager: none Anesthesiologist: Jenna Boothe CRNA Anesthesia: general Specimen: yes Complications: none Condition: stable Fluids: per anesth. Estimated Blood Loss: volume - 40 ml Drains: none Implant(s) used?: No Janey Ulloa MD Nov 04, 2019 17:00
--- NOTE | 2019-11-04 17:17 | Immediate Post-Op Evaluation ---
Immediate Post-Op Evalulation Immediate Post-Op Evalulation Procedure: Lap Jannette Date of Evaluation: Nov 04, 2019 Time of Evaluation: 17:15 IV Fluids: 1000 Blood Products: 0 Estimated Blood Loss: 50 Urinary Output: 150 Blood Pressure Systolic: 150 Blood Pressure Diastolic: 30 Pulse Rate: 90 Respiratory Rate: 14 O2 Sat by Pulse Oximetry: 100 Temperature (Fahrenheit): 97.5 Nausea: No Vomiting: No Patient Status: awake, reacts, patent Hydration Status: adequate Drug: zosyn Given Within 1 Hr of Incision: Yes Time Given: 15:00 Jenna Anders CRNA Nov 04, 2019 17:17
--- NOTE | 2019-11-04 18:10 | NUR ---
NURSE NOTES: Received report from Fernanda Sesay RN from recovery. Patient back on the unit. Patient is on 3L/min nasal cannula, no signs of distress or labored breathing. VSS. Patient drifting in and put of consciousness. Oriented to person and place. Patient on SCDs. Patient can feel full sensation in bilateral upper and lower extremities. Patient has four lap sites, dry and intact. Will carry out post op orders and continue to monitor.
[2019-11-04] MEDS: D5 1/2NS w/KCl 20mEq 1,000 ML IV SCH (18:30)
--- NOTE | 2019-11-04 20:00 | History and Physical Report ---
DATE OF ADMISSION: 11/03/2019 SOURCE OF INFORMATION: The patient and EMR. HISTORY OF PRESENT ILLNESS: The patient is a 39-year-old female with history of obesity. The patient presented with worsening of abdominal pain in the right upper abdominal quadrant. Positive for nausea. Denies any vomiting or constipation. Positive for severe pain. ALLERGIES: NKDA. FAMILY HISTORY: Reviewed and noncontributory. MEDICATIONS: Current hospital medications including, but not limited to Zosyn. PAST MEDICAL HISTORY: Including obesity, GERD. PHYSICAL EXAMINATION: VITAL SIGNS: Blood pressure 130/80, temperature 98.2, pulse oximetry 98% on room air, respiratory rate 18. HEAD AND NECK: Atraumatic and normocephalic. CHEST: Clear to auscultation. HEART: S1, S2. Regular rate and rhythm. ABDOMEN: Soft. No organomegaly. MUSCULOSKELETAL: No gross lateralized motor deficit. Positive for Chapin signs. LABORATORY DATA: Labs dated November 02, WBC 13.1, hemoglobin 15.7, platelets 330,000. Sodium 136, potassium 3.2, creatinine 0.4. Albumin of 1.9. Wbc in the urine positive. IMAGING: Abdominopelvic CT scan shows cholelithiasis suggestive of acute cholecystitis. ASSESSMENT: 1. Acute cholecystitis. 2. Obesity. 3. UTI. 4. Sepsis. PLAN OF CARE: We will start the patient on IV antibiotic. We will send blood cultures. Surgeon notified. Sagrario Grey M.D. DR: HENRY JOB#: [id number] CC: SUSI
--- NOTE | 2019-11-04 20:00 | NUR ---
NURSE NOTES: Pt. received from KIARA Victoria. Pt. drowsy, alert to name, year, and city. Breathing unlabored with 3L NC, complaints of pain and will address with pain interventions ordered. IV noted right AC 20g intact and patent. Iv noted left AC 20g saline locked. SCDs applied. x4 lap site dressings clean dry and intact. Bed is low and locked, side rails x3 up, bed alarm active, and call light in reach.
--- NOTE | 2019-11-04 20:53 | General Progress Note ---
Assessment/Plan Assessment/Plan: Assessment - abdominal pain - acute cholecystitis Recommendations - lap mayra - post op care Subjective Allergies: Coded Allergies: No Known Allergies (Unverified , 11/03/19) Subjective Above noted seen today pre op c/o abd pain (subsequent surgery later in the day) Objective Last 24 Hour Vital Signs Date Time Temp Pulse Resp B/P (MAP) Pulse Ox O2 Delivery O2 Flow Rate FiO2 11/04/19 18:28 98.8 92 20 151/64 (93) 99 11/04/19 17:55 98.2 11/04/19 17:52 98.2 84 16 157/90 100 Nasal Cannula 3 11/04/19 17:45 87 18 157/93 100 Nasal Cannula 3 11/04/19 17:40 84 14 162/91 100 Nasal Cannula 3 11/04/19 17:30 87 16 157/85 100 Simple Mask 6 11/04/19 17:24 86 18 158/86 100 Simple Mask 6 11/04/19 17:20 87 13 162/87 100 Simple Mask 6 11/04/19 17:17 90 14 100 11/04/19 17:15 86 11 162/86 100 Simple Mask 6 11/04/19 17:10 98.2 87 12 151/80 100 Simple Mask 6 11/04/19 12:00 97.9 88 20 124/74 (91) 97 11/04/19 09:00 Room Air 11/04/19 08:00 98.2 84 18 123/74 (90) 97 11/04/19 04:00 98.9 82 20 121/64 (83) 97 11/03/19 21:44 98.7 11/03/19 21:00 98.2 80 18 122/76 (91) 98 11/03/19 21:00 Room Air Intake and Output 11/03/19 11/04/19 19:00 07:00 Intake Total 1165 ml Balance 1165 ml Intake IV Total 1165 ml # Voids 1 1 Laboratory Tests 11/04/19 06:50: White Blood Count 7.7, Red Blood Count 3.80L, Hemoglobin 12.2, Hematocrit 37.6, Mean Corpuscular Volume 99, Mean Corpuscular Hemoglobin 32.1H, Mean Corpuscular Hemoglobin Concent 32.4, Red Cell Distribution Width 13.0, Platelet Count 260, Mean Platelet Volume 9.2, Neutrophils (%) (Auto) 68.4, Lymphocytes (%) (Auto) 20.4, Monocytes (%) (Auto) 8.5, Eosinophils (%) (Auto) 1.9, Basophils (%) (Auto ) 0.8, Sodium Level 137, Potassium Level 3.7, Chloride Level 103, Carbon Dioxide Level 26, Anion Gap 8, Blood Urea Nitrogen 9, Creatinine 0.6, Estimat Glomerular Filtration Rate > 60, Glucose Level 98, Hemoglobin A1c 5.5, Calcium Level 8.0#L, Total Bilirubin 0.4, Aspartate Amino Transf (AST/SGOT) 28, Alanine Aminotransferase (ALT/SGPT) 28, Alkaline Phosphatase 90, Total Protein 6.6, Albumin 2.3L, Globulin 4.3, Albumin/Globulin Ratio 0.5L, Triglycerides Level 53 , Cholesterol Level 122, LDL Cholesterol 66, HDL Cholesterol 40, Cholesterol/ HDL Ratio 3.1L Height (Feet): 5 Height (Inches): 2.00 Weight (Pounds): 169 Objective WDWN NCAT supple CTA RR abd soft (+) TTP no edema David Mendez MD Nov 04, 2019 20:53
[2019-11-04] MEDS ORDERED: Piperacillin/Tazobactam 3.375 GM in NS 110 ML IVPB SCH (22:00)
--- NOTE | 2019-11-04 22:30 | Consultation ---
DATE OF CONSULTATION: 11/04/2019 INFECTIOUS DISEASE CONSULTATION CONSULTING PHYSICIAN: Homa Silvestre M.D. REQUESTING PHYSICIAN: Sagrario Grey M.D. REASON FOR CONSULTATION: Acute cholecystitis with UTI and leukocytosis, possible sepsis. Recommendation for antibiotics treatment. HISTORY OF PRESENT ILLNESS: The patient is a 39-year-old female with no past medical history presented to [facility] emergency room with abdominal pain localized in the right upper quadrant area which she had for almost 10 days. It was 8/10. It radiated to the epigastrium and to her back associated with nausea and vomiting. No fever or chills. No chest pain. No shortness of breath. No diarrhea. In the ER, she had a temperature of 98.2 with pulse ox of 99 percent on room air. CT scan image of the abdomen showed cholelithiasis with gallbladder distention and thickening of the gallbladder wall with pericholecystic inflammatory change suggesting acute cholecystitis, so she was started on IV antibiotics, admitted to the surgical floor, and Infectious Disease consultation was requested for antibiotics treatment and further management. PAST MEDICAL HISTORY: Negative. PAST SURGICAL HISTORY: Negative. MEDICATIONS: She is on Zosyn. For the rest of her medications, please refer to MAR. ALLERGIES: No known drug allergies. FAMILY HISTORY: Not contributory. SOCIAL HISTORY: She is unemployed. Lives with family. Denied using any drugs, tobacco, or alcohol. REVIEW OF SYSTEMS: A 14-point of system reviewed were all negative apart from the one I mentioned above in my History and Physical. PHYSICAL EXAMINATION: VITAL SIGNS: Temperature 98.2, pulse 84, respirations 18, blood pressure 123/74, and saturation 97% on room air. GENERAL: A middle-aged female, lying in bed, awake, alert, not in acute distress. HEENT: Normocephalic and atraumatic. Pupils are reactive to light equally. Moist oral mucosa. No exudate or thrush. NECK: Supple. No lymphadenopathy. CARDIOVASCULAR: Regular rate and rhythm. No murmur or gallop. LUNGS: Clear bilaterally. No wheezing or rhonchi. ABDOMEN: Soft and tender in the epigastric and right upper quadrant with rebound. No organomegaly. No ascites. EXTREMITY: No edema or cyanosis. LABORATORY DATA: Laboratories showed white count of 13.1 and hemoglobin of 15.7, platelet count of 331,000. BUN of 10 and creatinine of 0.4. AST of 19, ALT of 13, and alk phosphatase of 56. Urinalysis showed multiple WBC too numerous to count and moderate amount of bacteria. MICROBIOLOGY: COVID-19 [place] Molecular Test was negative. IMAGING: CT scan of the abdomen and pelvis showed cholelithiasis with gallbladder distention, gallbladder wall thickening, and pericholecystic inflammatory change suggesting acute cholecystitis. ASSESSMENT AND RECOMMENDATION: 1. Acute cholecystitis. Continue Zosyn pending surgical resection of the gallbladder. Continue antibiotics for 48 hours after surgery at least. 2. UTI. The patient is already on Zosyn pending culture. Thank you for the consult. ID will continue to follow. Homa Silvestre M.D. DR: BRISA JOB#: [id number] CC:
--- NOTE | 2019-11-04 23:29 | Operative Note - Dictated ---
DATE OF OPERATION: 11/04/2019 PREOPERATIVE DIAGNOSES: Cholecystitis and cholelithiasis. POSTOPERATIVE DIAGNOSIS: Acute cholecystitis with impacted stone in the neck of the gallbladder. OPERATION: 1. Laparoscopic cholecystectomy. 2. Lysis of the adhesions. COMPLICATIONS: None. SURGEON: Janey Ulloa M.D. MAGNET VALVE ASSEMBLER: None. ANESTHESIA: General with endotracheal tube. ANESTHESIOLOGIST: Jenna Anders CRNA. INDICATION: This is a 39-year-old female, who presented with abdominal pain for about 2 days. The pain was located at the right upper quadrant with radiation to her back and associated with nausea and vomiting. Physical examination showed severe tenderness at the right upper quadrant. The admission labs showed a WBC of 13,000 with a left shift, but chemistry was within normal limits. Ultrasound showed cholelithiasis. DESCRIPTION OF PROCEDURE: The patient was placed supine on the operating room and after general anesthesia with endotracheal tube, the abdomen was properly prepped and draped. Initially, a small incision was made below the umbilicus through which a Veress needle was introduced into the intraperitoneal cavity. This cavity was insufflated up to 15 mmHg and the Veress needle was removed and a 5 mm trocar was placed in the intraperitoneal cavity through the incision below the umbilicus and a 5 mm trocar was placed in the intraperitoneal cavity through the incision below the umbilicus. The laparoscope and camera was introduced into the intraperitoneal cavity through the trocar below the umbilicus. Under direct vision, a working trocar was placed at the epigastrium and 5 mm trocars were placed at right upper quadrant and right flank. Initially, a rapid exploration was performed, which showed the diaphragms to be normal. The part of the stomach, which could be seen was normal. Liver was normal. Gallbladder was severely distended and was covered completely with the omentum. The bowels were covered with omentum. Initially with a blunt dissection and the help of the Bovie, the adhesion of the omentum over the gallbladder was able to be released and the full length of the gallbladder was exposed. At the next step, we tried to aspirate the gallbladder, but the was very thick and it did not aspirate. The gallbladder was very distended and the wall was thick and edematous so at the lower part of the gallbladder, a small opening was made which drained the bile and we were able to grasp the fundus with the grasper from the trocar site at the right flank. The fundus was retracted cephalad and lateral. The neck of the gallbladder was exposed which showed that it had a large stone impacted. The stone was moved and with difficulty finally the neck of the gallbladder was grasped with another grasper and Calot triangle was exposed. The patient had edema and chronic inflammation in this area, but the blunt dissection was performed and initially the cystic duct was identified and isolated. This duct was doubly ligated with the Hemoclip and was transected. Further dissection was performed and cystic artery was identified and doubly ligated and transected. After this, blunt dissection was performed at the Calot triangle. There was severe fibrosis, but were able to manage this and dissect the neck. At upper part of the neck, there was bleeding which was controlled with hemoclips and then the gallbladder was gradually released from the gallbladder bed towards the fundus. The gallbladder was completely removed from the gallbladder bed and then the bed of the gallbladder was cauterized with the help of the Bovie. The patient had a very large stone and the gallbladder was large and very thick and so to accommodate the size of the gallbladder, we had to extend the incision in the epigastrium and finally we managed to remove the gallbladder from the intraabdominal cavity through the incision at epigastrium. After removal of the gallbladder, the incision at the epigastrium was approximated with #0 Vicryl with the help of the Endo closure and it was reinforced with a running suture of #0 Vicryl. Then another exploration was performed. There was no bleeding or complication. The trocars were removed under direct vision and the incisions were infiltrated with 30 mL of Marcaine 0.25%. The subcutaneous tissue was approximated with 4-0 chromic and the skin incisions were approximated with running subcuticular suture of 4-0 chromic. The patient tolerated the procedure very well and was transferred to recovery room in stable condition and extubated. The sponge and needle count correct. ESTIMATED BLOOD LOSS: 30 mL. CONDITION: Condition of the patient at the end of the procedure is stable. Janey Ulloa M.D. DR: KIRAN JOB#: [id number] CC:
[2019-11-05] VITALS: BP 136/74
--- NOTE | 2019-11-05 01:50 | NUR ---
NURSE NOTES: Pt. provided with partial bed bath, tolerated turning with x2 staff assist after being administered ordered pain medication. X4 lap site dressings clean dry and intact. Pt. now resting comfortably.
--- NOTE | 2019-11-05 02:30 | NUR ---
NURSE NOTES: Orders received from Dr. Grey to transfer pt. to telemetry due to tachycardia. Charge nurse aware.
[2019-11-05] MEDS ORDERED: Metoprolol Succinate XL 50mg tab ORAL SCH (02:45)
--- NOTE | 2019-11-05 03:40 | NUR ---
NURSE NOTES: Pt. transferred to tele per Dr. Grey's orders, report given to KIARA Dunne. Pt. AAOx3, satting well on room air, blood pressure stable, tachycardia 125HR. Belongings list checked with receiving RN, pt. signed belongings list declaring some items were taken home by family member yesterday 11/03. Remaining belongings checked against list and verified.
--- NOTE | 2019-11-05 03:56 | NUR ---
NURSE NOTES: Received report from KIARA Camacho. Patient transferred from [facility] unit to monitor tachycardia. Patient is post laparoscopic cholecystectomy. Incision sites dry, intact. Abdomen is soft, non distended. Denies chest pain. Tolerates small sips of water. No SOB or respiratory distress. Will administer IV fluids bolus and administer IV antibiotics. Patient states that her daughter came yesterday to picker tender $100 in [place]. She states that she no longer has [place] in her bag. Refused to let nurses check her backpack. Will continue to monitor. Bed lowest position with siderails up. Call light in reach.
[2019-11-05 04:00] VITALS: BP 135/74
[2019-11-05] MEDS: D5 1/2NS w/KCl 20mEq 1,000 ML IV SCH ×2 (04:00→14:38)
--- NOTE | 2019-11-05 05:00 | NUR ---
NURSE NOTES: CALLED AND LEFT A MESSAGE WITH THE MD REGARDING PTS ORDER FOR 2300 ML BOLUS. AWAITING CALL BACK
--- NOTE | 2019-11-05 05:45 | NUR ---
NURSE NOTES: Called and left message with Dr. Grey regarding clarification of 2300 ml of NS bolus. Awaiting call back.
[2019-11-05] MEDS: Piperacillin/Tazobactam 3.375 GM in NS 110 ML IVPB SCH ×3 (06:00→23:12)
--- NOTE | 2019-11-05 07:36 | NUR ---
NURSE NOTES: Dr. Grey called back regarding clarification order of 2300 ml bolus and stated that he did not request this order. Patient is able to drink clear fluids at this time. Tolerating water well.
--- NOTE | 2019-11-05 07:38 | NUR ---
NURSE NOTES: Endorsed plan of care to KIARA Ling.
--- NOTE | 2019-11-05 07:42 | NUR ---
NURSE NOTES: Patient received from Abraham CRAIG. Patient stable sleeping at this time with no s/sx of pain or distress. RR even and unlabored on RA. IV fluids infusing. Arreguin draining to gravity. Side rails upx2, call light within reach, bed low and locked. Will continue to monitor.
[2019-11-05 08:00] VITALS: BP 124/83
[2019-11-05 08:40] LABS: BASOPHILS % (AUTO) 0.8 % (0.0-2.0); HEMATOCRIT 32.7 % (37.0-47.0); HEMOGLOBIN 10.2 G/DL (12.0-16.0); LYMPHOCYTES % (AUTO) 9.7 % (20.0-45.0); MEAN CORPUSCULAR VOLUME 100 FL (80-99); NEUTROPHILS % (AUTO) 81.5 % (45.0-75.0); PLATELET COUNT 278 K/UL (150-450); RED BLOOD COUNT 3.26 M/UL (4.20-5.40); WHITE BLOOD COUNT 13.8 K/UL (4.8-10.8)
[2019-11-05] MEDS: Pantoprazole Inj IVP SCH (09:12)
[2019-11-05 09:22] LABS: ALANINE AMINOTRANSFERASE 71 U/L (12-78); ALBUMIN 2.3 G/DL (3.4-5.0); ALBUMIN/GLOBULIN RATIO 0.5 (1.0-2.7); ALKALINE PHOSPHATASE 91 U/L (46-116); AMYLASE 105 U/L (25-115); ANION GAP 9 mmol/L (5-15); ASPARTATE AMINO TRANSFERASE 75 U/L (15-37); BILIRUBIN,TOTAL 0.3 MG/DL (0.2-1.0); BLOOD UREA NITROGEN 11 mg/dL (7-18); CARBON DIOXIDE 24 MMOL/L (21-32); CHLORIDE 102 MMOL/L (98-107); CREATININE 1.1 MG/DL (0.55-1.30); POTASSIUM 4.8 MMOL/L (3.5-5.1); SODIUM 135 MMOL/L (136-145)
--- NOTE | 2019-11-05 10:26 | Diagnostic Imaging Report ---
EXAM: XR Right Ribs and AP Chest, 3 or More Views CLINICAL HISTORY: PAIN TECHNIQUE: Frontal and oblique views of the right ribs and frontal view of the chest. COMPARISON: No relevant prior studies available. FINDINGS: Lungs: Unremarkable. The lungs appear clear. No confluent pulmonary opacities. Pleural space: Unremarkable. No pneumothorax. Heart: Unremarkable. No cardiomegaly. Mediastinum: Unremarkable. Bones/joints: Subtle lucency along the lateral margin of the right eighth rib, may represent a nondisplaced fracture. No other displaced rib fractures identified. Upper abdomen: Surgical clips in the right upper abdominal quadrant, possibly from prior cholecystectomy. Tubes, lines and devices: Telemetry leads overlie the thorax. IMPRESSION: Subtle lucency along the lateral margin of the right 8th rib may represent a nondisplaced fracture. Recommend correlation with point tenderness.
--- NOTE | 2019-11-05 10:47 | General Surgery Progress Note ---
General Surgery-Progress Note Subjective Day of Surgery: 1 Procedure Performed Laparoscopic Cholecystectomy Symptoms: improved Additional Comments had tachycardia was transferred to telly unit Objective Last 24 Hour Vital Signs Date Time Temp Pulse Resp B/P (MAP) Pulse Ox O2 Delivery O2 Flow Rate FiO2 11/05/19 08:00 97.7 101 20 124/83 (97) 95 11/05/19 04:00 97.0 129 21 135/74 (94) 94 11/05/19 03:25 117 135/74 11/05/19 00:00 97.0 125 16 136/74 (94) 97 11/04/19 21:00 Nasal Cannula 3.0 11/04/19 20:00 97.2 120 18 130/97 (108) 100 11/04/19 18:28 98.8 92 20 151/64 (93) 99 11/04/19 17:55 98.2 11/04/19 17:52 98.2 84 16 157/90 100 Nasal Cannula 3 11/04/19 17:45 87 18 157/93 100 Nasal Cannula 3 11/04/19 17:40 84 14 162/91 100 Nasal Cannula 3 11/04/19 17:30 87 16 157/85 100 Simple Mask 6 11/04/19 17:24 86 18 158/86 100 Simple Mask 6 11/04/19 17:20 87 13 162/87 100 Simple Mask 6 11/04/19 17:17 90 14 100 11/04/19 17:15 86 11 162/86 100 Simple Mask 6 11/04/19 17:10 98.2 87 12 151/80 100 Simple Mask 6 11/04/19 12:00 97.9 88 20 124/74 (91) 97 I&O Intake and Output 11/04/19 11/05/19 19:00 07:00 Intake Total 1250 ml 616.0 ml Output Total 350 ml 500 ml Balance 900 ml 116.0 ml Intake Oral 240 ml IV Total 1250 ml 376.0 ml Output Urine Total 300 ml 500 ml Estimated Blood Loss 50 ml # Voids 1 Dressing: dry Drains: none Respiratory: clear Abdomen: soft, flat, tenderness, absent bowel sounds Extremities: no tenderness Laboratory Tests Test 11/05/19 08:30 White Blood Count 13.8 K/UL (4.8-10.8) #H Red Blood Count 3.26 M/UL (4.20-5.40) L Hemoglobin 10.2 G/DL (12.0-16.0) L Hematocrit 32.7 % (37.0-47.0) L Mean Corpuscular Volume 100 FL (80-99) H Mean Corpuscular Hemoglobin 31.4 PG (27.0-31.0) H Mean Corpuscular Hemoglobin Concent 31.4 G/DL (32.0-36.0) L Red Cell Distribution Width 13.0 % (11.6-14.8) Platelet Count 278 K/UL (150-450) Mean Platelet Volume 8.8 FL (6.5-10.1) Neutrophils (%) (Auto) 81.5 % (45.0-75.0) H Lymphocytes (%) (Auto) 9.7 % (20.0-45.0) L Monocytes (%) (Auto) 8.0 % (1.0-10.0) Eosinophils (%) (Auto) 0.0 % (0.0-3.0) Basophils (%) (Auto) 0.8 % (0.0-2.0) Sodium Level 135 MMOL/L (136-145) L Potassium Level 4.8 MMOL/L (3.5-5.1) Chloride Level 102 MMOL/L (98-107) Carbon Dioxide Level 24 MMOL/L (21-32) Anion Gap 9 mmol/L (5-15) Blood Urea Nitrogen 11 mg/dL (7-18) Creatinine 1.1 MG/DL (0.55-1.30) # Estimat Glomerular Filtration Rate 55.6 mL/min (>60) Glucose Level 141 MG/DL (74-106) H Calcium Level 8.0 MG/DL (8.5-10.1) L Total Bilirubin 0.3 MG/DL (0.2-1.0) Aspartate Amino Transf (AST/SGOT) 75 U/L (15-37) H Alanine Aminotransferase (ALT/SGPT) 71 U/L (12-78) Alkaline Phosphatase 91 U/L (46-116) Total Protein 6.6 G/DL (6.4-8.2) Albumin 2.3 G/DL (3.4-5.0) L Globulin 4.3 g/dL Albumin/Globulin Ratio 0.5 (1.0-2.7) L Amylase Level 105 U/L (25-115) Assessment Post-op Diagnosis impacted stone in neck of gall bladder Plan Additional Comments continue as before Janey Ulloa MD Nov 05, 2019 10:47
--- NOTE | 2019-11-05 10:54 | General Progress Note ---
Assessment/Plan Assessment/Plan: S: I am ok O: seems comfrotable, pain is well controlled PHYSICAL EXAMINATION:HEAD AND NECK: Atraumatic and normocephalic. CHEST: Clear to auscultation.HEART: S1, S2. Regular rate and rhythm. ABDOMEN: post op changes noted . No organomegaly. MUSCULOSKELETAL: No gross lateralized motor deficit. Positive for Chapin signs. Meds and labs: reviewed and reconciled ASSESSMENT: 1. Acute cholecystitis. 2. Acute Sinus tachycardia 3. Obesity. 4. UTI. 4. Sepsis. Plan: Lower extremity Dupplex Transfer to Tele Dr Bautista consulted Subjective Allergies: Coded Allergies: No Known Allergies (Unverified , 11/03/19) Objective Last 24 Hour Vital Signs Date Time Temp Pulse Resp B/P (MAP) Pulse Ox O2 Delivery O2 Flow Rate FiO2 11/05/19 08:00 97.7 101 20 124/83 (97) 95 11/05/19 04:00 97.0 129 21 135/74 (94) 94 11/05/19 03:25 117 135/74 11/05/19 00:00 97.0 125 16 136/74 (94) 97 11/04/19 21:00 Nasal Cannula 3.0 11/04/19 20:00 97.2 120 18 130/97 (108) 100 11/04/19 18:28 98.8 92 20 151/64 (93) 99 11/04/19 17:55 98.2 11/04/19 17:52 98.2 84 16 157/90 100 Nasal Cannula 3 11/04/19 17:45 87 18 157/93 100 Nasal Cannula 3 11/04/19 17:40 84 14 162/91 100 Nasal Cannula 3 11/04/19 17:30 87 16 157/85 100 Simple Mask 6 11/04/19 17:24 86 18 158/86 100 Simple Mask 6 11/04/19 17:20 87 13 162/87 100 Simple Mask 6 11/04/19 17:17 90 14 100 11/04/19 17:15 86 11 162/86 100 Simple Mask 6 11/04/19 17:10 98.2 87 12 151/80 100 Simple Mask 6 11/04/19 12:00 97.9 88 20 124/74 (91) 97 Intake and Output 11/04/19 11/05/19 19:00 07:00 Intake Total 1250 ml 616.0 ml Output Total 350 ml 500 ml Balance 900 ml 116.0 ml Intake Oral 240 ml IV Total 1250 ml 376.0 ml Output Urine Total 300 ml 500 ml Estimated Blood Loss 50 ml # Voids 1 Laboratory Tests 11/05/19 08:30: White Blood Count 13.8#H, Red Blood Count 3.26L, Hemoglobin 10.2L, Hematocrit 32.7L, Mean Corpuscular Volume 100H, Mean Corpuscular Hemoglobin 31.4H, Mean Corpuscular Hemoglobin Concent 31.4L, Red Cell Distribution Width 13.0, Platelet Count 278, Mean Platelet Volume 8.8, Neutrophils (%) (Auto) 81.5H, Lymphocytes (%) (Auto) 9.7L, Monocytes (%) (Auto) 8.0, Eosinophils (%) (Auto) 0.0, Basophils (%) (Auto) 0.8, Sodium Level 135L, Potassium Level 4.8, Chloride Level 102, Carbon Dioxide Level 24, Anion Gap 9, Blood Urea Nitrogen 11, Creatinine 1.1#, Estimat Glomerular Filtration Rate 55.6, Glucose Level 141H, Calcium Level 8.0L, Total Bilirubin 0.3, Aspartate Amino Transf (AST/SGOT) 75H, Alanine Aminotransferase (ALT/SGPT) 71, Alkaline Phosphatase 91, Total Protein 6.6, Albumin 2.3L, Globulin 4.3, Albumin/Globulin Ratio 0.5L, Amylase Level 105 Height (Feet): 5 Height (Inches): 2.00 Weight (Pounds): 169 Sagrario Grey MD Nov 05, 2019 10:54
[2019-11-05 12:00] VITALS: BP 114/79
[2019-11-05] MEDS ORDERED: Naloxone 0.4mg/ml Inj IVP PRN (12:45)
[2019-11-05] MEDS ORDERED: HYDROcodone/Acetamin 5/325 tab ORAL PRN (13:15)
[2019-11-05] MEDS ORDERED: HYDROmorphone 1mg/ml Carpuject SUBQ PRN (13:15)
[2019-11-05 16:00] VITALS: BP 148/94
--- NOTE | 2019-11-05 16:08 | Diagnostic Imaging Report ---
EXAM: US Duplex Bilateral Lower Extremities Veins CLINICAL HISTORY: PAIN TECHNIQUE: Real-time duplex ultrasound scan of the bilateral lower extremity veins integrating B-mode two-dimensional vascular structure, Doppler spectral analysis, color flow Doppler imaging and compression. COMPARISON: No relevant prior studies available. FINDINGS: Right deep veins: Unremarkable. No DVT in the right common femoral, femoral, proximal deep femoral or popliteal veins. The veins demonstrate normal color flow, are normally compressible, with normal phasic flow and/or augmentation response. Right superficial veins: Unremarkable. Left deep veins: Unremarkable. No DVT in the left common femoral, femoral, proximal deep femoral or popliteal veins. The veins demonstrate normal color flow, are normally compressible, with normal phasic flow and/or augmentation response. Left superficial veins: Unremarkable. Soft tissues: No popliteal cyst. IMPRESSION: No evidence of DVT in the visualized venous segments of the bilateral lower extremity.
[2019-11-05] MEDS: Hydromorphone 0.5mg/0.5ml inj SUBQ PRN (16:59)
[2019-11-05] MEDS: Docusate Sod/Senna tab ORAL SCH (18:06)
--- NOTE | 2019-11-05 18:46 | Infectious Diseases Prog Note ---
Assessment/Plan Problems: (1) Cholecystitis Assessment & Plan: status post cholecystectomy continue Zosyn for now surgery is following (2) UTI (urinary tract infection) Assessment & Plan: with diphtheroids, ready on Zosyn Subjective Constitutional: Reports: no symptoms HEENT: Reports: no symptoms Respiratory: Reports: no symptoms Breasts: Reports: no symptoms Cardiovascular: Reports: no symptoms Gastrointestinal/Abdominal: Reports: other - pain Genitourinary: Reports: no symptoms Neurologic: Reports: no symptoms Psychiatric: Reports: no symptoms Skin: Reports: no symptoms Endocrine: Reports: no symptoms Hematologic: Reports: no symptoms Musculoskeletal: Reports: no symptoms Allergies: Coded Allergies: No Known Allergies (Unverified , 11/03/19) Objective Vital Signs Last 24 Hour Vital Signs Date Time Temp Pulse Resp B/P (MAP) Pulse Ox O2 Delivery O2 Flow Rate FiO2 11/05/19 16:00 97.9 112 20 148/94 (112) 94 11/05/19 16:00 112 11/05/19 12:00 105 11/05/19 12:00 97.5 101 20 114/79 (91) 95 11/05/19 09:00 Nasal Cannula 3.0 11/05/19 08:00 97.7 101 20 124/83 (97) 95 11/05/19 08:00 103 11/05/19 04:00 97.0 129 21 135/74 (94) 94 11/05/19 03:25 117 135/74 11/05/19 00:00 97.0 125 16 136/74 (94) 97 11/04/19 21:00 Nasal Cannula 3.0 11/04/19 20:00 97.2 120 18 130/97 (108) 100 Height (Feet): 5 Height (Inches): 2.00 Weight (Pounds): 169 General Appearance: WD/WN, no acute distress HEENT: normocephalic, atraumatic, anicteric, mucous membranes moist, PERRL Respiratory/Chest: chest wall non-tender, lungs clear, normal breath sounds, no respiratory distress, no accessory muscle use Cardiovascular: normal peripheral pulses, normal rate, regular rhythm, no gallop/murmur, no JVD Abdomen: no organomegaly, no mass, hypoactive bowel sounds, distended, tender Extremities: no cyanosis, no clubbing Skin: no rash, no lesions Neurologic/Psychiatric: 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, no motor/sensory deficits, alert, oriented x 3, responsive Lymphatic: no neck adenopathy, no groin adenopathy Musculoskeletal: normal muscle bulk, no effusion Microbiology Date/Time Source Procedure Growth Status 11/03/19 12:40 Nasopharynx SARS-CoV-2 RdRp Gene Assay - Final Complete 11/03/19 07:05 Urine,Clean Catch Urine Culture - Final Diphtheroids Complete 11/04/19 15:40 Bile Gram Stain - Final Resulted 11/04/19 15:40 Bile Aerobic Culture - Preliminary Resulted 11/04/19 15:40 Bile Anaerobic Culture Pending Resulted Laboratory Tests Test 11/05/19 08:30 11/05/19 11:37 White Blood Count 13.8 K/UL (4.8-10.8) #H Red Blood Count 3.26 M/UL (4.20-5.40) L Hemoglobin 10.2 G/DL (12.0-16.0) L Hematocrit 32.7 % (37.0-47.0) L Mean Corpuscular Volume 100 FL (80-99) H Mean Corpuscular Hemoglobin 31.4 PG (27.0-31.0) H Mean Corpuscular Hemoglobin Concent 31.4 G/DL (32.0-36.0) L Red Cell Distribution Width 13.0 % (11.6-14.8) Platelet Count 278 K/UL (150-450) Mean Platelet Volume 8.8 FL (6.5-10.1) Neutrophils (%) (Auto) 81.5 % (45.0-75.0) H Lymphocytes (%) (Auto) 9.7 % (20.0-45.0) L Monocytes (%) (Auto) 8.0 % (1.0-10.0) Eosinophils (%) (Auto) 0.0 % (0.0-3.0) Basophils (%) (Auto) 0.8 % (0.0-2.0) Sodium Level 135 MMOL/L (136-145) L Potassium Level 4.8 MMOL/L (3.5-5.1) Chloride Level 102 MMOL/L (98-107) Carbon Dioxide Level 24 MMOL/L (21-32) Anion Gap 9 mmol/L (5-15) Blood Urea Nitrogen 11 mg/dL (7-18) Creatinine 1.1 MG/DL (0.55-1.30) # Estimat Glomerular Filtration Rate 55.6 mL/min (>60) Glucose Level 141 MG/DL (74-106) H Calcium Level 8.0 MG/DL (8.5-10.1) L Total Bilirubin 0.3 MG/DL (0.2-1.0) Aspartate Amino Transf (AST/SGOT) 75 U/L (15-37) H Alanine Aminotransferase (ALT/SGPT) 71 U/L (12-78) Alkaline Phosphatase 91 U/L (46-116) Total Protein 6.6 G/DL (6.4-8.2) Albumin 2.3 G/DL (3.4-5.0) L Globulin 4.3 g/dL Albumin/Globulin Ratio 0.5 (1.0-2.7) L Amylase Level 105 U/L (25-115) Arterial Blood pH 7.336 (7.350-7.450) Arterial Blood Partial Pressure CO2 42.0 mmHg (35.0-45.0) Arterial Blood Partial Pressure O2 76.2 mmHg (75.0-100.0) Arterial Blood HCO3 21.9 mmol/L (22.0-26.0) L Arterial Blood Oxygen Saturation 93.8 % (95-100) L Arterial Blood Base Excess -3.7 (-2-2) L Rod Test Positive Current Medications Medications (Trade) Dose Ordered Sig/Misa Route PRN Reason Start Time Stop Time Status Last Admin Dose Admin Acetaminophen (Tylenol) 650 mg Q4H PRN ORAL Mild Pain (Pain Scale 1-3) 11/05/19 13:15 12/05/19 13:14 Acetaminophen (Tylenol) 650 mg Q4H PRN RECTAL FEVER 11/04/19 17:00 12/04/19 16:59 Acetaminophen/ Hydrocodone Bitart (Spelter 5/325) 1 tab Q4H PRN ORAL Moderate Pain (Pain Scale 4-6) 11/05/19 13:15 11/12/19 13:14 Bisacodyl (Dulcolax) 10 mg DAILY@0800 PRN RECTAL lack of BM 11/06/19 09:00 11/06/19 23:59 Dextrose/ Electrolytes 1,000 ml @ 100 mls/hr Q10H IV 11/04/19 18:00 12/04/19 17:59 11/05/19 14:38 Hydromorphone HCl (Dilaudid) 0.5 mg Q8H PRN SUBQ Severe Pain (Pain Scale 7-10) 11/05/19 14:15 11/12/19 13:14 11/05/19 16:59 Metoclopramide HCl (Reglan) 10 mg Q6H PRN IVP Nausea & Vomiting 11/04/19 17:00 12/04/19 16:59 Metoprolol Tartrate (Lopressor) 25 mg Q12HR ORAL 11/05/19 03:25 02/03/20 03:24 11/05/19 03:25 Naloxone HCl (Narcan) 0.1 mg Q1M PRN IVP RR<10/min OR SBP<90 mmHg 11/05/19 12:45 11/07/19 12:44 Ondansetron HCl (Zofran) 4 mg Q6H PRN IVP Nausea & Vomiting 11/04/19 17:00 12/04/19 16:59 Pantoprazole (Protonix) 40 mg DAILY IVP 11/04/19 09:00 12/04/19 08:59 11/05/19 09:12 Piperacillin Sod/ Tazobactam Sod 3.375 gm/Sodium Chloride 110 ml @ 27.5 mls/hr Q8HR IVPB 11/03/19 22:00 11/10/19 21:59 11/05/19 14:38 Senna/Docusate Sodium (Alice-Colace) 1 tab TWICE A DAY ORAL 11/05/19 18:00 12/05/19 17:59 11/05/19 18:06 Homa Silvestre M.D. Nov 05, 2019 18:46
--- NOTE | 2019-11-05 19:09 | Cardiology Progress Note ---
Assessment/Plan Assessment/Plan The patient is seen and examined, full consult note is dictated. Objective Last 24 Hour Vital Signs Date Time Temp Pulse Resp B/P (MAP) Pulse Ox O2 Delivery O2 Flow Rate FiO2 11/05/19 16:00 97.9 112 20 148/94 (112) 94 11/05/19 16:00 112 11/05/19 12:00 105 11/05/19 12:00 97.5 101 20 114/79 (91) 95 11/05/19 09:00 Nasal Cannula 3.0 11/05/19 08:00 97.7 101 20 124/83 (97) 95 11/05/19 08:00 103 11/05/19 04:00 97.0 129 21 135/74 (94) 94 11/05/19 03:25 117 135/74 11/05/19 00:00 97.0 125 16 136/74 (94) 97 11/04/19 21:00 Nasal Cannula 3.0 11/04/19 20:00 97.2 120 18 130/97 (108) 100 Intake and Output 11/04/19 11/05/19 19:00 07:00 Intake Total 1250 ml 616.0 ml Output Total 350 ml 500 ml Balance 900 ml 116.0 ml Intake Oral 240 ml IV Total 1250 ml 376.0 ml Output Urine Total 300 ml 500 ml Estimated Blood Loss 50 ml # Voids 1 Laboratory Tests Test 11/05/19 08:30 11/05/19 11:37 White Blood Count 13.8 K/UL (4.8-10.8) #H Red Blood Count 3.26 M/UL (4.20-5.40) L Hemoglobin 10.2 G/DL (12.0-16.0) L Hematocrit 32.7 % (37.0-47.0) L Mean Corpuscular Volume 100 FL (80-99) H Mean Corpuscular Hemoglobin 31.4 PG (27.0-31.0) H Mean Corpuscular Hemoglobin Concent 31.4 G/DL (32.0-36.0) L Red Cell Distribution Width 13.0 % (11.6-14.8) Platelet Count 278 K/UL (150-450) Mean Platelet Volume 8.8 FL (6.5-10.1) Neutrophils (%) (Auto) 81.5 % (45.0-75.0) H Lymphocytes (%) (Auto) 9.7 % (20.0-45.0) L Monocytes (%) (Auto) 8.0 % (1.0-10.0) Eosinophils (%) (Auto) 0.0 % (0.0-3.0) Basophils (%) (Auto) 0.8 % (0.0-2.0) Sodium Level 135 MMOL/L (136-145) L Potassium Level 4.8 MMOL/L (3.5-5.1) Chloride Level 102 MMOL/L (98-107) Carbon Dioxide Level 24 MMOL/L (21-32) Anion Gap 9 mmol/L (5-15) Blood Urea Nitrogen 11 mg/dL (7-18) Creatinine 1.1 MG/DL (0.55-1.30) # Estimat Glomerular Filtration Rate 55.6 mL/min (>60) Glucose Level 141 MG/DL (74-106) H Calcium Level 8.0 MG/DL (8.5-10.1) L Total Bilirubin 0.3 MG/DL (0.2-1.0) Aspartate Amino Transf (AST/SGOT) 75 U/L (15-37) H Alanine Aminotransferase (ALT/SGPT) 71 U/L (12-78) Alkaline Phosphatase 91 U/L (46-116) Total Protein 6.6 G/DL (6.4-8.2) Albumin 2.3 G/DL (3.4-5.0) L Globulin 4.3 g/dL Albumin/Globulin Ratio 0.5 (1.0-2.7) L Amylase Level 105 U/L (25-115) Arterial Blood pH 7.336 (7.350-7.450) Arterial Blood Partial Pressure CO2 42.0 mmHg (35.0-45.0) Arterial Blood Partial Pressure O2 76.2 mmHg (75.0-100.0) Arterial Blood HCO3 21.9 mmol/L (22.0-26.0) L Arterial Blood Oxygen Saturation 93.8 % (95-100) L Arterial Blood Base Excess -3.7 (-2-2) L Rod Test Positive Microbiology Date/Time Source Procedure Growth Status 11/03/19 12:40 Nasopharynx SARS-CoV-2 RdRp Gene Assay - Final Complete 11/03/19 07:05 Urine,Clean Catch Urine Culture - Final Diphtheroids Complete 11/04/19 15:40 Bile Gram Stain - Final Resulted 11/04/19 15:40 Bile Aerobic Culture - Preliminary Resulted 11/04/19 15:40 Bile Anaerobic Culture Pending Resulted Aaron Bautista MD Nov 05, 2019 19:09
--- NOTE | 2019-11-05 19:44 | NUR ---
HAND-OFF: Report given to Car CRAIG. Patient stable. Plan of care endorsed. Endorsed that Dr. Doty has been consulted and needs to be contacted with rib xray results and abg.
--- NOTE | 2019-11-05 19:45 | NUR ---
NURSE NOTES: Pt received from KIARA Mike alert and oriented x4 with no acute s/s of distress noted. IV site asymptomatic and patent on L ac 20g, running to D51/2 NS with 20 KCl at 100 as ordered. Bed in lowest position, call light and belongings within reach.
[2019-11-05 20:00] VITALS: BP 143/86
--- NOTE | 2019-11-05 20:40 | NUR ---
NURSE NOTES: RN communicated new physician order consult to Dr. Doty regarding new c/o of R upper abdominal pain, result of CXR with the ribs (possible nondisplaced fracture), ABG results, and recent vitals. Per Dr. Doty, "he will see patient in the morning." No new orders given. Will continue to monitor.
--- NOTE | 2019-11-05 20:59 | NUR ---
NURSE NOTES: Pt requesting to take shower. RN communicated with Dr. Bautista and Dr. Ulloa. Per Dr. Ulloa, ok to take shower with surgical site. Per amy Hunt to be off tele for shower. Will carry out orders appropriately.
[2019-11-05] MEDS: Carvedilol 6.25mg Tab ORAL SCH (21:38)
--- NOTE | 2019-11-05 22:00 | General Progress Note ---
Assessment/Plan Assessment/Plan: Assessment - abdominal pain, presumed due to abnormal GB - acute cholecystitis - s/p mayra - etiology of chest wall pain and TTP unknown - ABG noted Recommendations - po per surgery - agree with pulmonary eval - watch resp status Subjective Allergies: Coded Allergies: No Known Allergies (Unverified , 11/03/19) Subjective above noted transferred to [facility] s/p Mayra Objective Last 24 Hour Vital Signs Date Time Temp Pulse Resp B/P (MAP) Pulse Ox O2 Delivery O2 Flow Rate FiO2 11/05/19 21:38 95 143/86 11/05/19 20:00 97.9 95 17 143/86 (105) 98 11/05/19 16:00 97.9 112 20 148/94 (112) 94 11/05/19 16:00 112 11/05/19 12:00 105 11/05/19 12:00 97.5 101 20 114/79 (91) 95 11/05/19 09:00 Nasal Cannula 3.0 11/05/19 08:00 97.7 101 20 124/83 (97) 95 11/05/19 08:00 103 11/05/19 04:00 97.0 129 21 135/74 (94) 94 11/05/19 03:25 117 135/74 11/05/19 00:00 97.0 125 16 136/74 (94) 97 Intake and Output 11/04/19 11/05/19 19:00 07:00 Intake Total 1250 ml 616.0 ml Output Total 350 ml 500 ml Balance 900 ml 116.0 ml Intake Oral 240 ml IV Total 1250 ml 376.0 ml Output Urine Total 300 ml 500 ml Estimated Blood Loss 50 ml # Voids 1 Laboratory Tests 11/05/19 08:30: White Blood Count 13.8#H, Red Blood Count 3.26L, Hemoglobin 10.2L, Hematocrit 32.7L, Mean Corpuscular Volume 100H, Mean Corpuscular Hemoglobin 31.4H, Mean Corpuscular Hemoglobin Concent 31.4L, Red Cell Distribution Width 13.0, Platelet Count 278, Mean Platelet Volume 8.8, Neutrophils (%) (Auto) 81.5H, Lymphocytes (%) (Auto) 9.7L, Monocytes (%) (Auto) 8.0, Eosinophils (%) (Auto) 0.0, Basophils (%) (Auto) 0.8, Sodium Level 135L, Potassium Level 4.8, Chloride Level 102, Carbon Dioxide Level 24, Anion Gap 9, Blood Urea Nitrogen 11, Creatinine 1.1#, Estimat Glomerular Filtration Rate 55.6, Glucose Level 141H, Calcium Level 8.0L, Total Bilirubin 0.3, Aspartate Amino Transf (AST/SGOT) 75H, Alanine Aminotransferase (ALT/SGPT) 71, Alkaline Phosphatase 91, Total Protein 6.6, Albumin 2.3L, Globulin 4.3, Albumin/Globulin Ratio 0.5L, Amylase Level 105 11/05/19 11:37: Arterial Blood pH 7.336L, Arterial Blood Partial Pressure CO2 42.0, Arterial Blood Partial Pressure O2 76.2, Arterial Blood HCO3 21.9L, Arterial Blood Oxygen Saturation 93.8L, Arterial Blood Base Excess -3.7L, Rod Test Positive 11/05/19 19:25: Troponin I 0.000, Pro-B-Type Natriuretic Peptide 172H Height (Feet): 5 Height (Inches): 2.00 Weight (Pounds): 169 Objective WDWN NCAT supple CTA, (R) anterior chest wall TTP RR abd soft ND no edema David Mendez MD Nov 05, 2019 22:00
[2019-11-06] VITALS: BP 129/72
--- NOTE | 2019-11-06 03:44 | Consultation ---
DATE OF CONSULTATION: 11/05/2019 CARDIOLOGY CONSULTATION CONSULTING PHYSICIAN: Aaron Bautista MD REFERRING PHYSICIAN: Sagrario Grey MD REASON FOR CONSULTATION: Management of tachycardia. HISTORY OF PRESENT ILLNESS: The patient is a very unfortunate 39-year-old female who was initially admitted for abdominal pain. Initial workup in the emergency department showed leukocytosis with WBC count of 13.1. CT of the abdomen showing cholelithiasis with gallbladder distention, gallbladder wall thickening, pericholecystic inflammatory changes suggestive of acute cholecystitis. The patient underwent cholecystectomy on 11/04/[address] Ulloa. Following the procedure, the patient became tachypneic and was transferred to telemetry for further evaluation and management of shortness of breath. Past medical history does not specify coronary artery disease, congestive heart failure, or cardiac arrhythmias. The patient denies prior history of tobacco or illicit drug use. There is no history of heavy alcoholism either. A 12-lead electrocardiogram confirmed sinus tachycardia with no acute ischemic features. Troponin I level was 0. Brain natriuretic peptide was 172. A stat 2D echocardiography was done which revealed anterior wall hypokinesia with left ventricular ejection fraction approximately 40%, normal LV diastolic function, normal right ventricular systolic pressure measuring at 16 mmHg, right atrial pressure was estimated at 8 mmHg as well. PAST MEDICAL HISTORY: None. PAST SURGICAL HISTORY: Status post cholecystectomy. ALLERGIES: No known drug allergies. REVIEW OF SYSTEMS: A 12-system review done essentially negative except what was mentioned in history of present illness. MEDICATIONS: List of medications prior to hospitalization, acetaminophen 500 mg q.8h. p.r.n. temperature above 101 and headaches, cephalexin 500 mg q.6h. for 7 days, cimetidine 20 mg p.o. daily, Zofran 4 mg q.6h. p.r.n. nausea and vomiting. FAMILY HISTORY: No premature coronary artery disease in the first-degree relatives. SOCIAL HISTORY: Lives at home. No prior history of tobacco, alcohol, or illicit drug use. PHYSICAL EXAMINATION: VITAL SIGNS: Blood pressure at time of my evaluation was 148/94 mmHg, heart rate of 112, temperature of 97.9 degrees Fahrenheit, respirations 20, O2 saturation 94% on room air. GENERAL: Very anxious 39-year-old female, in no apparent respiratory distress. Alert and oriented x4. HEENT: Atraumatic and normocephalic. Anicteric. Pupils are equal, round, and reactive to light and accommodation. Extraocular muscles intact. NECK: JVP just about 8 cm. No carotid bruit. Carotid upstroke is 2+ bilaterally. CVS: Normal S1 and S2. Regular rate and rhythm. No S3 or S4. No rubs. LUNGS: Diminished breath sounds in both bases. ABDOMEN: Slight tenderness due to prior surgery, otherwise positive bowel sounds. EXTREMITIES: No evidence of edema, clubbing, or cyanosis. LABORATORY AND DIAGNOSTIC DATA: Laboratory findings as of 11/05/2019, sodium 135, potassium 4.8, chloride 102, bicarbonate 24, BUN of 11, creatinine 1.1, glucose is 141, calcium is 8.0. AST 75. Troponin I was 0. ProBNP was 172. Amylase of 105. WBC count 13.8, hemoglobin 10.2, hematocrit 32.7, platelet count 278. INR is 1.1. Venous duplex lower extremity showed no evidence of DVT. ASSESSMENT AND PLAN: The patient is a very unfortunate 39-year-old female, seen in Cardiology consultation. 1. Sinus tachycardia, possibility of prerenal azotemia with signs of dehydration. Creatinine has jumped from 0.6 to 1.1 which is abnormal for this patient with relatively low body mass. The patient will benefit from IV hydration. Other mechanism could be sepsis in view of leukocytosis. The patient is, however, afebrile. ID recommendation is appreciated. A 2D echocardiography also shows element of cardiomyopathy with anterior wall hypokinesia and overall LVEF approximately 40%. There is, however, no sign of rise in intracardiac filling pressure translating into lack of congestive heart failure at this time. The patient will benefit from beta-forrest and small dose of JUNITO inhibitor if tolerated with close monitoring of daily creatinine and potassium. 2. Cardiomyopathy with LVEF of approximately 40% and normal LV diastolic function, positive wall motion abnormality in the anterior wall. Troponin I level is negative. ProBNP is slightly elevated at 172. We will continue with afterload reduction with JUNITO inhibitor and withhold diuretics at this time. IV fluids, however, should be gently administered. 3. Dyslipidemia with low HDL level. 4. Acute cholecystitis, status post cholecystectomy. I would like to thank Dr. Grey for the courtesy of this consultation. Aaron Bautista M.D. DR: Blayne JOB#: [id number] CC:
[2019-11-06 04:00] VITALS: BP 132/69
[2019-11-06] MEDS: Piperacillin/Tazobactam 3.375 GM in NS 110 ML IVPB SCH ×3 (05:29→22:00)
[2019-11-06 07:08] LABS: HEMATOCRIT 24.1 % (37.0-47.0); HEMOGLOBIN 7.8 G/DL (12.0-16.0); MEAN CORPUSCULAR VOLUME 99 FL (80-99); PLATELET COUNT 227 K/UL (150-450); RED BLOOD COUNT 2.45 M/UL (4.20-5.40); RED CELL DISTRIBUTION WIDTH 12.6 % (11.6-14.8); WHITE BLOOD COUNT 9.4 K/UL (4.8-10.8)
--- NOTE | 2019-11-06 07:19 | 48 Hour Post Anesthesia Eval ---
Post Anesthesia Evaluation Procedure: Lap Jannette Date of Evaluation: Nov 06, 2019 Time of Evaluation: 07:19 Blood Pressure Systolic: 132 0: 69 Pulse Rate: 80 Respiratory Rate: 14 O2 Sat by Pulse Oximetry: 98 Airway: patent Nausea: No Vomiting: No Hydration Status: adequate Cardiopulmonary Status: stable Mental Status/LOC: patient returned to baseline Post-Anesthesia Complications: none Follow-up care needed: N/A Jenna Anders CRNA Nov 06, 2019 07:19
--- NOTE | 2019-11-06 07:24 | NUR ---
HAND-OFF: Report given to KIARA Mike. Plan of care endorsed.
[2019-11-06 07:40] LABS: ALANINE AMINOTRANSFERASE 50 U/L (12-78); ALBUMIN 2.1 G/DL (3.4-5.0); ALBUMIN/GLOBULIN RATIO 0.5 (1.0-2.7); ALKALINE PHOSPHATASE 74 U/L (46-116); ANION GAP 8 mmol/L (5-15); ASPARTATE AMINO TRANSFERASE 42 U/L (15-37); BILIRUBIN,TOTAL 0.4 MG/DL (0.2-1.0); BLOOD UREA NITROGEN 13 mg/dL (7-18); CARBON DIOXIDE 26 MMOL/L (21-32); CHLORIDE 100 MMOL/L (98-107); CREATININE 0.8 MG/DL (0.55-1.30); POTASSIUM 3.7 MMOL/L (3.5-5.1); SODIUM 134 MMOL/L (136-145)
[2019-11-06 08:00] VITALS: BP 130/84
--- NOTE | 2019-11-06 08:04 | NUR ---
NURSE NOTES: Patient received from Car RN. Patient stable sleeping with no s/sx of pain or distress. RR even and unlabored RA. Fluids infusing. Side rails upx2, call light within reach. bed low and locked. Will continue to monitor.
[2019-11-06] MEDS: Pantoprazole Inj IVP SCH (08:59)
[2019-11-06] MEDS: Carvedilol 6.25mg Tab ORAL SCH ×2 (08:59→18:18)
[2019-11-06] MEDS: D5 1/2NS w/KCl 20mEq 1,000 ML IV SCH ×3 (08:59→17:45)
[2019-11-06] MEDS: Docusate Sod/Senna tab ORAL SCH ×2 (08:59→18:17)
[2019-11-06] MEDS: Hydromorphone 0.5mg/0.5ml inj SUBQ PRN ×2 (09:00→18:17)
[2019-11-06] MEDS ORDERED: Losartan 25mg tab ORAL SCH (09:00)
--- NOTE | 2019-11-06 09:52 | General Progress Note ---
Assessment/Plan Problem List: (1) Cholecystitis ICD Codes: K81.9 - Cholecystitis, unspecified SNOMED: [id number] Assessment/Plan: Assessment/Plan Assessment/Plan: Assessment - abdominal pain, presumed due to abnormal GB - acute cholecystitis - s/p mayra - etiology of chest wall pain and TTP unknown - ABG noted Recommendations - po per surgery - agree with pulmonary eval - watch resp status -cardiology in put appreciated -drop in H&H>> ? bloddy stool -repeat cbc in am -transfuse to keep ghb above 7 -ppi Subjective ROS Limited/Unobtainable: Yes Allergies: Coded Allergies: No Known Allergies (Unverified , 11/03/19) Objective Last 24 Hour Vital Signs Date Time Temp Pulse Resp B/P (MAP) Pulse Ox O2 Delivery O2 Flow Rate FiO2 11/06/19 08:59 85 130/84 11/06/19 08:58 130/84 11/06/19 08:00 99.3 85 20 130/84 (99) 99 11/06/19 07:19 80 14 98 11/06/19 04:00 88 11/06/19 04:00 97.7 90 17 132/69 (90) 98 11/06/19 00:00 98.1 88 16 129/72 (91) 97 11/06/19 00:00 91 11/05/19 21:38 95 143/86 11/05/19 21:00 Room Air 11/05/19 20:00 102 11/05/19 20:00 97.9 95 17 143/86 (105) 98 11/05/19 16:00 97.9 112 20 148/94 (112) 94 11/05/19 16:00 112 11/05/19 12:00 105 11/05/19 12:00 97.5 101 20 114/79 (91) 95 Intake and Output 11/05/19 11/06/19 19:00 07:00 Intake Total 700 ml 1260 ml Balance 700 ml 1260 ml Intake Oral 600 ml 360 ml IV Total 100 ml 900 ml # Voids 3 3 # Bowel Movements 1 Laboratory Tests 11/05/19 11:37: Arterial Blood pH 7.336L, Arterial Blood Partial Pressure CO2 42.0, Arterial Blood Partial Pressure O2 76.2, Arterial Blood HCO3 21.9L, Arterial Blood Oxygen Saturation 93.8L, Arterial Blood Base Excess -3.7L, Rod Test Positive 11/05/19 19:25: Troponin I 0.000, Pro-B-Type Natriuretic Peptide 172H 11/05/19 23:20: Magnesium Level 1.8 11/06/19 06:05: Pro-B-Type Natriuretic Peptide 219H, White Blood Count 9.4, Red Blood Count 2.45L, Hemoglobin 7.8L, Hematocrit 24.1L, Mean Corpuscular Volume 99, Mean Corpuscular Hemoglobin 31.8H, Mean Corpuscular Hemoglobin Concent 32.2, Red Cell Distribution Width 12.6, Platelet Count 227, Mean Platelet Volume 8.4, Neutrophils (%) (Auto) , Lymphocytes (%) (Auto) , Monocytes (%) (Auto) , Eosinophils (%) (Auto) , Basophils (%) (Auto) , Neutrophils % (Manual) [Pending] , Lymphocytes % (Manual) [Pending], Platelet Estimate [Pending], Platelet Morphology [Pending], Sodium Level 134L, Potassium Level 3.7, Chloride Level 100 , Carbon Dioxide Level 26, Anion Gap 8, Blood Urea Nitrogen 13, Creatinine 0.8, Estimat Glomerular Filtration Rate > 60, Glucose Level 112H, Calcium Level 8.0L , Total Bilirubin 0.4, Aspartate Amino Transf (AST/SGOT) 42H, Alanine Aminotransferase (ALT/SGPT) 50, Alkaline Phosphatase 74, Total Protein 6.0L, Albumin 2.1L, Globulin 3.9, Albumin/Globulin Ratio 0.5L Height (Feet): 5 Height (Inches): 2.00 Weight (Pounds): 169 General Appearance: no apparent distress EENT: normal ENT inspection Neck: supple Cardiovascular: normal rate Respiratory/Chest: decreased breath sounds Abdomen: soft, hypoactive bowel sounds Extremities: non-tender Brandon Crane MD Nov 06, 2019 09:52
--- NOTE | 2019-11-06 09:54 | NUR ---
RADIOLOGY NOTE: PORTABLE CHEST X-RAY COMPLETED AT 0912 HRS. FA
--- NOTE | 2019-11-06 10:00 | NUR ---
NURSE NOTES: Informed Dr. Grey that patient's hemoglobin today is 7.8 and that she is actively bleeding as there is blood on toilet paper when she wipes. She would not allow for thorough assessment but there is blood as well on her perineal pad. Orders received.
--- NOTE | 2019-11-06 10:00 | General Progress Note ---
Assessment/Plan Assessment/Plan: S: My urine is pink O: seems comfrotable, pain is well controlled PHYSICAL EXAMINATION:HEAD AND NECK: Atraumatic and normocephalic. CHEST: Clear to auscultation.HEART: S1, S2. Regular rate and rhythm. ABDOMEN: post op changes noted . No organomegaly. MUSCULOSKELETAL: No gross lateralized motor deficit. Positive for Chapin signs. Meds and labs: reviewed and reconciled ASSESSMENT: 1. Acute cholecystitis. 2. Acute Sinus tachycardia 3. Obesity. 4. UTI. 4. Sepsis. 5. Hematuria/Vaginal bleed! Plan: Lower extremity Dupplex Ok to transfuse 2 units Post op pain managment anemia panel Subjective Allergies: Coded Allergies: No Known Allergies (Unverified , 11/03/19) Objective Last 24 Hour Vital Signs Date Time Temp Pulse Resp B/P (MAP) Pulse Ox O2 Delivery O2 Flow Rate FiO2 11/06/19 08:59 85 130/84 11/06/19 08:58 130/84 11/06/19 08:00 99.3 85 20 130/84 (99) 99 11/06/19 07:19 80 14 98 11/06/19 04:00 88 11/06/19 04:00 97.7 90 17 132/69 (90) 98 11/06/19 00:00 98.1 88 16 129/72 (91) 97 11/06/19 00:00 91 11/05/19 21:38 95 143/86 11/05/19 21:00 Room Air 11/05/19 20:00 102 11/05/19 20:00 97.9 95 17 143/86 (105) 98 11/05/19 16:00 97.9 112 20 148/94 (112) 94 11/05/19 16:00 112 11/05/19 12:00 105 11/05/19 12:00 97.5 101 20 114/79 (91) 95 Intake and Output 11/05/19 11/06/19 19:00 07:00 Intake Total 700 ml 1260 ml Balance 700 ml 1260 ml Intake Oral 600 ml 360 ml IV Total 100 ml 900 ml # Voids 3 3 # Bowel Movements 1 Laboratory Tests 11/05/19 11:37: Arterial Blood pH 7.336L, Arterial Blood Partial Pressure CO2 42.0, Arterial Blood Partial Pressure O2 76.2, Arterial Blood HCO3 21.9L, Arterial Blood Oxygen Saturation 93.8L, Arterial Blood Base Excess -3.7L, Rod Test Positive 11/05/19 19:25: Troponin I 0.000, Pro-B-Type Natriuretic Peptide 172H 11/05/19 23:20: Magnesium Level 1.8 11/06/19 06:05: Pro-B-Type Natriuretic Peptide 219H, White Blood Count 9.4, Red Blood Count 2.45L, Hemoglobin 7.8L, Hematocrit 24.1L, Mean Corpuscular Volume 99, Mean Corpuscular Hemoglobin 31.8H, Mean Corpuscular Hemoglobin Concent 32.2, Red Cell Distribution Width 12.6, Platelet Count 227, Mean Platelet Volume 8.4, Neutrophils (%) (Auto) , Lymphocytes (%) (Auto) , Monocytes (%) (Auto) , Eosinophils (%) (Auto) , Basophils (%) (Auto) , Neutrophils % (Manual) [Pending] , Lymphocytes % (Manual) [Pending], Platelet Estimate [Pending], Platelet Morphology [Pending], Sodium Level 134L, Potassium Level 3.7, Chloride Level 100 , Carbon Dioxide Level 26, Anion Gap 8, Blood Urea Nitrogen 13, Creatinine 0.8, Estimat Glomerular Filtration Rate > 60, Glucose Level 112H, Calcium Level 8.0L , Total Bilirubin 0.4, Aspartate Amino Transf (AST/SGOT) 42H, Alanine Aminotransferase (ALT/SGPT) 50, Alkaline Phosphatase 74, Total Protein 6.0L, Albumin 2.1L, Globulin 3.9, Albumin/Globulin Ratio 0.5L Height (Feet): 5 Height (Inches): 2.00 Weight (Pounds): 169 Sagrario Grey MD Nov 06, 2019 10:00
--- NOTE | 2019-11-06 10:13 | Diagnostic Imaging Report ---
Procedure: XRAY Chest 1v Reason for study: Reason For Exam: SOB Comparison films: None. FINDINGS: A single one view chest is obtained. Vascularity is normal. There are bibasilar streaky densities likely atelectasis. Early infiltrate cannot be excluded. Cardiac and mediastinal silhouette are within normal limits. CP angles are sharp. The bony thorax appear unremarkable. IMPRESSION: Bibasilar streaky densities likely atelectasis. Early infiltrate cannot be excluded.
[2019-11-06 10:22] LABS: % IRON SATURATION 15 % (15-50); IRON 21 ug/dL (50-175); TOTAL IRON BINDING CAPACITY 138 ug/dL (250-450)
--- NOTE | 2019-11-06 11:52 | NUR ---
NURSE NOTES: Patient being transfused now with no adverse reaction and no s/sx of distress. Tolerating transfusion well with VSS before and 15min after. Will continue to closely monitor.
[2019-11-06 12:00] VITALS: BP 120/58
--- NOTE | 2019-11-06 12:42 | General Surgery Progress Note ---
General Surgery-Progress Note Subjective Procedure Performed Laparoscopic Cholecystectomy Symptoms: improved, BM Objective Last 24 Hour Vital Signs Date Time Temp Pulse Resp B/P (MAP) Pulse Ox O2 Delivery O2 Flow Rate FiO2 11/06/19 09:00 Nasal Cannula 3.0 11/06/19 08:59 85 130/84 11/06/19 08:58 130/84 11/06/19 08:00 99.3 85 20 130/84 (99) 99 11/06/19 07:19 80 14 98 11/06/19 04:00 88 11/06/19 04:00 97.7 90 17 132/69 (90) 98 11/06/19 00:00 98.1 88 16 129/72 (91) 97 11/06/19 00:00 91 11/05/19 21:38 95 143/86 11/05/19 21:00 Room Air 11/05/19 20:00 102 11/05/19 20:00 97.9 95 17 143/86 (105) 98 11/05/19 16:00 97.9 112 20 148/94 (112) 94 11/05/19 16:00 112 I&O Intake and Output 11/05/19 11/06/19 19:00 07:00 Intake Total 700 ml 1260 ml Balance 700 ml 1260 ml Intake Oral 600 ml 360 ml IV Total 100 ml 900 ml # Voids 3 3 # Bowel Movements 1 Dressing: dry Respiratory: clear Abdomen: soft, flat, tenderness, present bowel sounds Extremities: no tenderness Laboratory Tests Test 11/05/19 19:25 11/05/19 23:20 11/06/19 06:05 11/06/19 06:06 Troponin I 0.000 ng/mL (0.000-0.056) Pro-B-Type Natriuretic Peptide 172 pg/mL (0-125) H 219 pg/mL (0-125) H Magnesium Level 1.8 MG/DL (1.8-2.4) White Blood Count 9.4 K/UL (4.8-10.8) Red Blood Count 2.45 M/UL (4.20-5.40) L Hemoglobin 7.8 G/DL (12.0-16.0) L Hematocrit 24.1 % (37.0-47.0) L Mean Corpuscular Volume 99 FL (80-99) Mean Corpuscular Hemoglobin 31.8 PG (27.0-31.0) H Mean Corpuscular Hemoglobin Concent 32.2 G/DL (32.0-36.0) Red Cell Distribution Width 12.6 % (11.6-14.8) Platelet Count 227 K/UL (150-450) Mean Platelet Volume 8.4 FL (6.5-10.1) Neutrophils (%) (Auto) % (45.0-75.0) Lymphocytes (%) (Auto) % (20.0-45.0) Monocytes (%) (Auto) % (1.0-10.0) Eosinophils (%) (Auto) % (0.0-3.0) Basophils (%) (Auto) % (0.0-2.0) Differential Total Cells Counted 100 Neutrophils % (Manual) 79 % (45-75) H Lymphocytes % (Manual) 18 % (20-45) L Monocytes % (Manual) 3 % (1-10) Eosinophils % (Manual) 0 % (0-3) Basophils % (Manual) 0 % (0-2) Band Neutrophils 0 % (0-8) Platelet Estimate Adequate Platelet Morphology Normal Hypochromasia 1+ Sodium Level 134 MMOL/L (136-145) L Potassium Level 3.7 MMOL/L (3.5-5.1) Chloride Level 100 MMOL/L (98-107) Carbon Dioxide Level 26 MMOL/L (21-32) Anion Gap 8 mmol/L (5-15) Blood Urea Nitrogen 13 mg/dL (7-18) Creatinine 0.8 MG/DL (0.55-1.30) Estimat Glomerular Filtration Rate > 60 mL/min (>60) Glucose Level 112 MG/DL (74-106) H Calcium Level 8.0 MG/DL (8.5-10.1) L Total Bilirubin 0.4 MG/DL (0.2-1.0) Aspartate Amino Transf (AST/SGOT) 42 U/L (15-37) H Alanine Aminotransferase (ALT/SGPT) 50 U/L (12-78) Alkaline Phosphatase 74 U/L (46-116) Total Protein 6.0 G/DL (6.4-8.2) L Albumin 2.1 G/DL (3.4-5.0) L Globulin 3.9 g/dL Albumin/Globulin Ratio 0.5 (1.0-2.7) L Iron Level 21 ug/dL (50-175) L Total Iron Binding Capacity 138 ug/dL (250-450) L Percent Iron Saturation 15 % (15-50) Unsaturated Iron Binding 117 ug/dL (112-346) Assessment Post-op Diagnosis impacted stone in neck of gall bladder Plan Additional Comments advance diet Janey Ulloa MD Nov 06, 2019 12:42
[2019-11-06] MEDS ORDERED: traMADol 50mg tab ORAL PRN (12:45)
--- NOTE | 2019-11-06 13:00 | Consultation ---
DATE OF CONSULTATION: 11/06/2019 PULMONARY CONSULTATION CONSULTING PHYSICIAN: Mir Doty MD REFERRING PHYSICIAN: Sagrario Grey MD REASON FOR CONSULT: Abnormal chest x-ray. HISTORY OF PRESENT ILLNESS: This is a 39-year-old female who is admitted to the hospital since 11/04/2019. The patient had presented with abdominal pain. She was found to have cholecystitis. The patient underwent lap cholecystectomy and lysis of adhesions by Dr. Ulloa on 11/04/2019. The patient is recuperating on the medical floor. She underwent a recent imaging study yesterday which showed a subtle lucency overlying the right eighth rib. Apart from that, there were no abnormal findings. The patient at this time appears to be comfortable. Denies any pain. PAST MEDICAL HISTORY: Notable for no known medical illnesses. PAST SURGICAL HISTORY: As discussed above, cholecystectomy only. ALLERGIES: None. REVIEW OF SYSTEMS: Denies any headaches, hematemesis, melena, hematochezia, night sweats, or weight loss. PHYSICAL EXAMINATION: GENERAL: Reveals a 39-year-old female. HEENT: Unremarkable. CHEST: Clear breath sounds bilaterally. ABDOMEN: Soft. EXTREMITIES: There is no edema. NEUROLOGICAL: Nonfocal. LABORATORY DATA: Lab testing at this point in time shows hemoglobin 7.8, otherwise normal CBC and BMP. ABG 7.33, pCO2 42, pO2 76. Urinalysis negative. IMPRESSION: 1. Mild respiratory acidosis. 2. Abnormal chest x-ray with lucency over right eighth rib. 3. Status post cholecystectomy. DISCUSSION: At this point, the patient is asymptomatic from pulmonary standpoint. We will carefully monitor respiratory status, minimize narcotics and/or pain medications given mild respiratory acidosis. Order oxygen and pulmonary hygiene. We will follow. Mir Doty M.D. DR: MARIETTA JOB#: [id number] CC:
--- NOTE | 2019-11-06 14:25 | NUR ---
CASE MANAGEMENT:REVIEW 11/06/19 SI: POD #2 CHOLECYSTITIS....S/P LAP VENTURA AND LYSIS OF ADHESIONS 99.3 85 20 130/84 99% ON 3L/NC H/H-7.8/24.1 IS: TRANSFUSE 1 UNIT PRBC'S IVF@100/HR IV ZOSYN Q8HRS COZAAR PO QD COREG PO BID TRAMADOL PO Q4HS PRN DILAUDID SQ Q8HRS PRN : TELEMETRY STATUS DCP: FROM HOME PLAN: POST OP PAIN MANAGEMENT IV ANTIBIOTICS TRANSFUSE
--- NOTE | 2019-11-06 15:06 | NUR ---
Social Work This Sw received a consult due to patient is homeless. This SW met with patient who remains independent, alert/oriented x4, making her own decisions. Patient states she is undocumented, while planning to return to her tent on "." [facility] and [facility] provided to patient due to not having any insurance. Patient also received half-way information, as needed. Patient explains she has adequate clothing, does not want any further assistance. Patient admitted to substance abuse (meth and marijuana), while appears that she does not wish to quit using substances at this time (patient declined substance abuse treatment information at this time). Patient does not qualify for insurance due to undocumented; to follow up with [facility] or [facility], as needed.
[2019-11-06 16:00] VITALS: BP 122/80
[2019-11-06 16:12] LABS: APPEARANCE,URINE CLOUDY; BILIRUBIN, URINE NEGATIVE (NEGATIVE); GLUCOSE, URINE (UA) NEGATIVE (NEGATIVE); KETONES,URINE NEGATIVE (NEGATIVE); LEUKOCYTE ESTERASE ,URINE 3+ (NEGATIVE); NITRITE,URINE NEGATIVE (NEGATIVE); PH,URINE 5 (4.5-8.0); PROTEIN,URINE 2+ (NEGATIVE); UROBILINOGEN,URINE NORMAL MG/DL (0.0-1.0)
[2019-11-06 16:13] LABS: COLOR,URINE RED
--- NOTE | 2019-11-06 17:30 | NUR ---
NURSE NOTES: Received report from KIARA Mike for patient's transfer from . Pt is AAO x 4, able to make needs known, ambulatory with unsteady gait d/t discomfort and post-operative pain of abdomen. Pt VSS T 99.5 P 83 R 22 BP 136/78 O2Sat at 99% on RA with no s/s of respiratory distress and c/o pain of 7/10 in the abdomen. Pt is on low fat diet and started eating today. Still no BM since 11/02/19. Pt is continent x2. pIV on L AC at 20 g running Zosyn at this time. Skin intact with areas of "tattoos" all over body that are not permanent. Pt is having her menstrual period. Call light within reach, bed in lowest position, with bed alarm on. Pt is planned for DC tomorrow in the AM. Will continue POC.
[2019-11-06] MEDS ORDERED: Naloxone 0.4mg/ml Inj IVP PRN (17:45)
[2019-11-06] MEDS ORDERED: Metoclopramide 10mg/2ml Inj IVP PRN (18:00)
[2019-11-06] MEDS ORDERED: Acetaminophen 650 MG SUPP RECTAL PRN (18:00)
--- NOTE | 2019-11-06 18:03 | NUR ---
HAND-OFF: Report given to Manuel CRAIG. Patient stable. Plan of care endorsed. Informed her that 2nd unit of PRBCs was called. CBC was ordered and patient will be discharged tomorrow. All belongings with patient including jewelry and backpack.
[2019-11-06 18:29] LABS: BASOPHILS % (AUTO) 0.8 % (0.0-2.0); EOSINOPHILS % (AUTO) 1.5 % (0.0-3.0); HEMATOCRIT 26.8 % (37.0-47.0); HEMOGLOBIN 8.5 G/DL (12.0-16.0); LYMPHOCYTES % (AUTO) 16.1 % (20.0-45.0); MEAN CORPUSCULAR VOLUME 94 FL (80-99); MONOCYTES % (AUTO) 9.1 % (1.0-10.0); NEUTROPHILS % (AUTO) 72.5 % (45.0-75.0); PLATELET COUNT 224 K/UL (150-450); RED BLOOD COUNT 2.86 M/UL (4.20-5.40); RED CELL DISTRIBUTION WIDTH 15.4 % (11.6-14.8); WHITE BLOOD COUNT 9.1 K/UL (4.8-10.8)
--- NOTE | 2019-11-06 19:10 | NUR ---
HAND-OFF: Report given to KIARA Rojo. Endorsed POC.
--- NOTE | 2019-11-06 19:50 | Cardiology Progress Note ---
Assessment/Plan Assessment/Plan 1. Sinus tachycardia, resolved, possibility hypovolemia, 2D echocardiography also shows element of cardiomyopathy with anterior wall hypokinesia and overall LVEF approximately 40%, no sign of rise in intracardiac filling pressure. 2. Cardiomyopathy with LVEF of approximately 40% and normal LV diastolic function, positive wall motion abnormality in the anterior wall. Troponin I level is negative. Continue losartan and carvedilol. 3. Dyslipidemia with low HDL level. 4. Acute cholecystitis, status post cholecystectomy. Objective Last 24 Hour Vital Signs Date Time Temp Pulse Resp B/P (MAP) Pulse Ox O2 Delivery O2 Flow Rate FiO2 11/06/19 18:47 98.7 11/06/19 18:18 83 136/78 11/06/19 16:00 98.7 79 18 122/80 (94) 98 11/06/19 16:00 106 11/06/19 13:56 97.9 11/06/19 12:00 88 11/06/19 12:00 97.9 87 19 120/58 (78) 98 11/06/19 09:00 Nasal Cannula 3.0 11/06/19 08:59 85 130/84 11/06/19 08:58 130/84 11/06/19 08:00 89 11/06/19 08:00 99.3 85 20 130/84 (99) 99 11/06/19 07:19 80 14 98 11/06/19 04:00 88 11/06/19 04:00 97.7 90 17 132/69 (90) 98 11/06/19 00:00 98.1 88 16 129/72 (91) 97 11/06/19 00:00 91 11/05/19 21:38 95 143/86 11/05/19 21:00 Room Air 11/05/19 20:00 102 11/05/19 20:00 97.9 95 17 143/86 (105) 98 Intake and Output 11/05/19 11/06/19 19:00 07:00 Intake Total 700 ml 1260 ml Balance 700 ml 1260 ml Intake Oral 600 ml 360 ml IV Total 100 ml 900 ml # Voids 3 3 # Bowel Movements 1 Laboratory Tests Test 11/05/19 23:20 11/06/19 06:05 11/06/19 06:06 11/06/19 15:00 Magnesium Level 1.8 MG/DL (1.8-2.4) White Blood Count 9.4 K/UL (4.8-10.8) Red Blood Count 2.45 M/UL (4.20-5.40) L Hemoglobin 7.8 G/DL (12.0-16.0) L Hematocrit 24.1 % (37.0-47.0) L Mean Corpuscular Volume 99 FL (80-99) Mean Corpuscular Hemoglobin 31.8 PG (27.0-31.0) H Mean Corpuscular Hemoglobin Concent 32.2 G/DL (32.0-36.0) Red Cell Distribution Width 12.6 % (11.6-14.8) Platelet Count 227 K/UL (150-450) Mean Platelet Volume 8.4 FL (6.5-10.1) Neutrophils (%) (Auto) % (45.0-75.0) Lymphocytes (%) (Auto) % (20.0-45.0) Monocytes (%) (Auto) % (1.0-10.0) Eosinophils (%) (Auto) % (0.0-3.0) Basophils (%) (Auto) % (0.0-2.0) Differential Total Cells Counted 100 Neutrophils % (Manual) 79 % (45-75) H Lymphocytes % (Manual) 18 % (20-45) L Monocytes % (Manual) 3 % (1-10) Eosinophils % (Manual) 0 % (0-3) Basophils % (Manual) 0 % (0-2) Band Neutrophils 0 % (0-8) Platelet Estimate Adequate Platelet Morphology Normal Hypochromasia 1+ Sodium Level 134 MMOL/L (136-145) L Potassium Level 3.7 MMOL/L (3.5-5.1) Chloride Level 100 MMOL/L (98-107) Carbon Dioxide Level 26 MMOL/L (21-32) Anion Gap 8 mmol/L (5-15) Blood Urea Nitrogen 13 mg/dL (7-18) Creatinine 0.8 MG/DL (0.55-1.30) Estimat Glomerular Filtration Rate > 60 mL/min (>60) Glucose Level 112 MG/DL (74-106) H Calcium Level 8.0 MG/DL (8.5-10.1) L Total Bilirubin 0.4 MG/DL (0.2-1.0) Aspartate Amino Transf (AST/SGOT) 42 U/L (15-37) H Alanine Aminotransferase (ALT/SGPT) 50 U/L (12-78) Alkaline Phosphatase 74 U/L (46-116) Pro-B-Type Natriuretic Peptide 219 pg/mL (0-125) H Total Protein 6.0 G/DL (6.4-8.2) L Albumin 2.1 G/DL (3.4-5.0) L Globulin 3.9 g/dL Albumin/Globulin Ratio 0.5 (1.0-2.7) L Iron Level 21 ug/dL (50-175) L Total Iron Binding Capacity 138 ug/dL (250-450) L Percent Iron Saturation 15 % (15-50) Unsaturated Iron Binding 117 ug/dL (112-346) Urine Color Red Urine Appearance Cloudy Urine pH 5 (4.5-8.0) Urine Specific [place] 1.010 (1.005-1.035) Urine Protein 2+ (NEGATIVE) H Urine Glucose (UA) Negative (NEGATIVE) Urine Ketones Negative (NEGATIVE) Urine Blood 5+ (NEGATIVE) H Urine Nitrite Negative (NEGATIVE) Urine Bilirubin Negative (NEGATIVE) Urine Urobilinogen Normal MG/DL (0.0-1.0) Urine Leukocyte Esterase 3+ (NEGATIVE) H Urine RBC Tntc /HPF (0 - 2) H Urine WBC 20-30 /HPF (0 - 2) H Urine Squamous Epithelial Cells Few /LPF (NONE/OCC) Urine Bacteria Occasional /HPF (NONE) Urine Trichomonas Occasional /HPF (NONE) Test 11/06/19 18:20 White Blood Count 9.1 K/UL (4.8-10.8) Red Blood Count 2.86 M/UL (4.20-5.40) L Hemoglobin 8.5 G/DL (12.0-16.0) L Hematocrit 26.8 % (37.0-47.0) L Mean Corpuscular Volume 94 FL (80-99) Mean Corpuscular Hemoglobin 29.9 PG (27.0-31.0) Mean Corpuscular Hemoglobin Concent 31.8 G/DL (32.0-36.0) L Red Cell Distribution Width 15.4 % (11.6-14.8) H Platelet Count 224 K/UL (150-450) Mean Platelet Volume 6.7 FL (6.5-10.1) Neutrophils (%) (Auto) 72.5 % (45.0-75.0) Lymphocytes (%) (Auto) 16.1 % (20.0-45.0) L Monocytes (%) (Auto) 9.1 % (1.0-10.0) Eosinophils (%) (Auto) 1.5 % (0.0-3.0) Basophils (%) (Auto) 0.8 % (0.0-2.0) Microbiology Date/Time Source Procedure Growth Status 11/04/19 15:40 Bile Gram Stain - Final Resulted 11/04/19 15:40 Bile Aerobic Culture - Preliminary NO GROWTH AFTER 24 HOURS Resulted 11/04/19 15:40 Bile Anaerobic Culture - Preliminary NO GROWTH Resulted Aaron Bautista MD Nov 06, 2019 19:50
[2019-11-06 20:00] VITALS: BP 117/77
--- NOTE | 2019-11-06 21:15 | NUR ---
NURSE NOTES: Stat urine sample collected and sent to lab.
--- NOTE | 2019-11-06 21:44 | Infectious Diseases Prog Note ---
Assessment/Plan Problems: (1) Cholecystitis Assessment & Plan: status post cholecystectomy continue Zosyn for now surgery is following (2) UTI (urinary tract infection) Assessment & Plan: with diphtheroids, ready on Zosyn Subjective Constitutional: Reports: no symptoms HEENT: Reports: no symptoms Respiratory: Reports: no symptoms Breasts: Reports: no symptoms Cardiovascular: Reports: no symptoms Gastrointestinal/Abdominal: Reports: constipation, bloating Genitourinary: Reports: no symptoms Neurologic: Reports: no symptoms Psychiatric: Reports: no symptoms Skin: Reports: no symptoms Endocrine: Reports: no symptoms Hematologic: Reports: no symptoms Musculoskeletal: Reports: no symptoms Allergies: Coded Allergies: No Known Allergies (Unverified , 11/03/19) Objective Vital Signs Last 24 Hour Vital Signs Date Time Temp Pulse Resp B/P (MAP) Pulse Ox O2 Delivery O2 Flow Rate FiO2 11/06/19 20:48 Nasal Cannula 3.0 11/06/19 18:47 98.7 11/06/19 18:18 83 136/78 11/06/19 16:00 98.7 79 18 122/80 (94) 98 11/06/19 16:00 106 11/06/19 13:56 97.9 11/06/19 12:00 88 11/06/19 12:00 97.9 87 19 120/58 (78) 98 11/06/19 09:00 Nasal Cannula 3.0 11/06/19 08:59 85 130/84 11/06/19 08:58 130/84 11/06/19 08:00 89 11/06/19 08:00 99.3 85 20 130/84 (99) 99 11/06/19 07:19 80 14 98 11/06/19 04:00 88 11/06/19 04:00 97.7 90 17 132/69 (90) 98 11/06/19 00:00 98.1 88 16 129/72 (91) 97 11/06/19 00:00 91 Height (Feet): 5 Height (Inches): 2.00 Weight (Pounds): 169 General Appearance: WD/WN, no acute distress HEENT: normocephalic, atraumatic, anicteric, mucous membranes moist, PERRL Respiratory/Chest: chest wall non-tender, lungs clear, normal breath sounds, no respiratory distress, no accessory muscle use Cardiovascular: normal peripheral pulses, normal rate, regular rhythm, no gallop/murmur, no JVD Abdomen: normal bowel sounds, soft, non tender, no organomegaly, non distended , no mass, no scars Genitourinary: normal external genitalia Extremities: no cyanosis, no clubbing Skin: no rash, no lesions, no ulcers 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, alert, oriented x 3, responsive Lymphatic: no neck adenopathy, no groin adenopathy Microbiology Date/Time Source Procedure Growth Status 11/04/19 15:40 Bile Gram Stain - Final Resulted 11/04/19 15:40 Bile Aerobic Culture - Preliminary NO GROWTH AFTER 24 HOURS Resulted 11/04/19 15:40 Bile Anaerobic Culture - Preliminary NO GROWTH Resulted Laboratory Tests Test 11/05/19 23:20 11/06/19 06:05 11/06/19 06:06 11/06/19 15:00 Magnesium Level 1.8 MG/DL (1.8-2.4) White Blood Count 9.4 K/UL (4.8-10.8) Red Blood Count 2.45 M/UL (4.20-5.40) L Hemoglobin 7.8 G/DL (12.0-16.0) L Hematocrit 24.1 % (37.0-47.0) L Mean Corpuscular Volume 99 FL (80-99) Mean Corpuscular Hemoglobin 31.8 PG (27.0-31.0) H Mean Corpuscular Hemoglobin Concent 32.2 G/DL (32.0-36.0) Red Cell Distribution Width 12.6 % (11.6-14.8) Platelet Count 227 K/UL (150-450) Mean Platelet Volume 8.4 FL (6.5-10.1) Neutrophils (%) (Auto) % (45.0-75.0) Lymphocytes (%) (Auto) % (20.0-45.0) Monocytes (%) (Auto) % (1.0-10.0) Eosinophils (%) (Auto) % (0.0-3.0) Basophils (%) (Auto) % (0.0-2.0) Differential Total Cells Counted 100 Neutrophils % (Manual) 79 % (45-75) H Lymphocytes % (Manual) 18 % (20-45) L Monocytes % (Manual) 3 % (1-10) Eosinophils % (Manual) 0 % (0-3) Basophils % (Manual) 0 % (0-2) Band Neutrophils 0 % (0-8) Platelet Estimate Adequate Platelet Morphology Normal Hypochromasia 1+ Sodium Level 134 MMOL/L (136-145) L Potassium Level 3.7 MMOL/L (3.5-5.1) Chloride Level 100 MMOL/L (98-107) Carbon Dioxide Level 26 MMOL/L (21-32) Anion Gap 8 mmol/L (5-15) Blood Urea Nitrogen 13 mg/dL (7-18) Creatinine 0.8 MG/DL (0.55-1.30) Estimat Glomerular Filtration Rate > 60 mL/min (>60) Glucose Level 112 MG/DL (74-106) H Calcium Level 8.0 MG/DL (8.5-10.1) L Total Bilirubin 0.4 MG/DL (0.2-1.0) Aspartate Amino Transf (AST/SGOT) 42 U/L (15-37) H Alanine Aminotransferase (ALT/SGPT) 50 U/L (12-78) Alkaline Phosphatase 74 U/L (46-116) Pro-B-Type Natriuretic Peptide 219 pg/mL (0-125) H Total Protein 6.0 G/DL (6.4-8.2) L Albumin 2.1 G/DL (3.4-5.0) L Globulin 3.9 g/dL Albumin/Globulin Ratio 0.5 (1.0-2.7) L Iron Level 21 ug/dL (50-175) L Total Iron Binding Capacity 138 ug/dL (250-450) L Percent Iron Saturation 15 % (15-50) Unsaturated Iron Binding 117 ug/dL (112-346) Urine Color Red Urine Appearance Cloudy Urine pH 5 (4.5-8.0) Urine Specific [place] 1.010 (1.005-1.035) Urine Protein 2+ (NEGATIVE) H Urine Glucose (UA) Negative (NEGATIVE) Urine Ketones Negative (NEGATIVE) Urine Blood 5+ (NEGATIVE) H Urine Nitrite Negative (NEGATIVE) Urine Bilirubin Negative (NEGATIVE) Urine Urobilinogen Normal MG/DL (0.0-1.0) Urine Leukocyte Esterase 3+ (NEGATIVE) H Urine RBC Tntc /HPF (0 - 2) H Urine WBC 20-30 /HPF (0 - 2) H Urine Squamous Epithelial Cells Few /LPF (NONE/OCC) Urine Bacteria Occasional /HPF (NONE) Urine Trichomonas Occasional /HPF (NONE) Test 11/06/19 18:20 11/06/19 21:00 White Blood Count 9.1 K/UL (4.8-10.8) Red Blood Count 2.86 M/UL (4.20-5.40) L Hemoglobin 8.5 G/DL (12.0-16.0) L Hematocrit 26.8 % (37.0-47.0) L Mean Corpuscular Volume 94 FL (80-99) Mean Corpuscular Hemoglobin 29.9 PG (27.0-31.0) Mean Corpuscular Hemoglobin Concent 31.8 G/DL (32.0-36.0) L Red Cell Distribution Width 15.4 % (11.6-14.8) H Platelet Count 224 K/UL (150-450) Mean Platelet Volume 6.7 FL (6.5-10.1) Neutrophils (%) (Auto) 72.5 % (45.0-75.0) Lymphocytes (%) (Auto) 16.1 % (20.0-45.0) L Monocytes (%) (Auto) 9.1 % (1.0-10.0) Eosinophils (%) (Auto) 1.5 % (0.0-3.0) Basophils (%) (Auto) 0.8 % (0.0-2.0) Urine Opiates Screen Pending Urine Barbiturates Screen Pending Phencyclidine (PCP) Screen Pending Urine Amphetamines Screen Pending Urine Benzodiazepines Screen Pending Urine Cocaine Screen Pending Urine Marijuana (THC) Screen Pending Current Medications Medications (Trade) Dose Ordered Sig/Misa Route PRN Reason Start Time Stop Time Status Last Admin Dose Admin Acetaminophen (Tylenol) 650 mg Q4H PRN ORAL Mild Pain (Pain Scale 1-3) 11/06/19 18:00 12/05/19 17:59 Acetaminophen (Tylenol) 650 mg Q4H PRN RECTAL FEVER 11/06/19 18:00 12/04/19 17:59 Carvedilol (Coreg) 6.25 mg BIDPC ORAL 11/06/19 18:00 12/05/19 20:59 11/06/19 18:18 Dextrose/ Electrolytes 1,000 ml @ 100 mls/hr Q10H IV 11/06/19 17:45 12/04/19 17:59 11/06/19 17:45 Hydromorphone HCl (Dilaudid) 0.5 mg Q8H PRN SUBQ Severe Pain (Pain Scale 7-10) 11/06/19 18:00 11/12/19 17:59 11/06/19 18:17 Losartan Potassium (Cozaar) 25 mg DAILY ORAL 11/07/19 09:00 12/06/19 08:59 Metoclopramide HCl (Reglan) 10 mg Q6H PRN IVP Nausea & Vomiting 11/06/19 18:00 12/04/19 17:59 Naloxone HCl (Narcan) 0.1 mg Q1M PRN IVP RR<10/min OR SBP<90 mmHg 11/06/19 17:45 11/08/19 17:44 Ondansetron HCl (Zofran) 4 mg Q6H PRN IVP Nausea & Vomiting 11/06/19 18:00 12/04/19 17:59 Pantoprazole (Protonix) 40 mg DAILY IVP 11/07/19 09:00 12/04/19 08:59 Piperacillin Sod/ Tazobactam Sod 3.375 gm/Sodium Chloride 110 ml @ 27.5 mls/hr Q8HR IVPB 11/06/19 22:00 11/10/19 21:59 Senna/Docusate Sodium (Alice-Colace) 1 tab TWICE A DAY ORAL 11/06/19 18:00 12/05/19 17:59 11/06/19 18:17 Tramadol HCl (Ultram) 50 mg Q4H PRN ORAL Moderate Pain (Pain Scale 4-6) 11/06/19 18:00 11/13/19 17:59 Homa Silvestre M.D. Nov 06, 2019 21:44
[2019-11-07] VITALS: BP 127/87
[2019-11-07] MEDS: D5 1/2NS w/KCl 20mEq 1,000 ML IV SCH ×2 (03:45→13:45)
[2019-11-07] MEDS: Piperacillin/Tazobactam 3.375 GM in NS 110 ML IVPB SCH ×2 (05:08→14:00)
[2019-11-07] MEDS: Hydromorphone 0.5mg/0.5ml inj SUBQ PRN (05:33)
[2019-11-07 06:45] LABS: BASOPHILS % (AUTO) 0.4 % (0.0-2.0); EOSINOPHILS % (AUTO) 2.1 % (0.0-3.0); HEMATOCRIT 25.5 % (37.0-47.0); HEMOGLOBIN 8.2 G/DL (12.0-16.0); LYMPHOCYTES % (AUTO) 14.6 % (20.0-45.0); MEAN CORPUSCULAR VOLUME 96 FL (80-99); MONOCYTES % (AUTO) 7.7 % (1.0-10.0); NEUTROPHILS % (AUTO) 75.2 % (45.0-75.0); PLATELET COUNT 228 K/UL (150-450); RED BLOOD COUNT 2.67 M/UL (4.20-5.40); RED CELL DISTRIBUTION WIDTH 14.4 % (11.6-14.8); WHITE BLOOD COUNT 8.2 K/UL (4.8-10.8)
[2019-11-07 07:15] LABS: ALANINE AMINOTRANSFERASE 39 U/L (12-78); ALBUMIN 2.1 G/DL (3.4-5.0); ALBUMIN/GLOBULIN RATIO 0.5 (1.0-2.7); ALKALINE PHOSPHATASE 72 U/L (46-116); ANION GAP 6 mmol/L (5-15); ASPARTATE AMINO TRANSFERASE 29 U/L (15-37); BILIRUBIN,TOTAL 0.4 MG/DL (0.2-1.0); BLOOD UREA NITROGEN 10 mg/dL (7-18); CARBON DIOXIDE 29 MMOL/L (21-32); CHLORIDE 102 MMOL/L (98-107); CREATININE 0.9 MG/DL (0.55-1.30); POTASSIUM 3.7 MMOL/L (3.5-5.1); SODIUM 137 MMOL/L (136-145)
--- NOTE | 2019-11-07 07:15 | NUR ---
NURSE NOTES: Received report from KIARA Olmos. Pt received in hospital bed sleeping. AAO x 4, able to make needs known, ambulatory with unsteady gait d/t discomfort and post-operative pain of abdomen on RA with no s/s of respiratory distress and no c/o pain at this time. Pt is on low fat diet and started eating today. Still no BM since 11/02/19. Pt is continent x2. pIV on L AC at 20 g running Zosyn at this time. Skin intact with areas of "tattoos" all over body that are not permanent. Pt is having her menstrual period. Call light within reach, bed in lowest position, with bed alarm on. Pt is planned for DC today. Will continue POC.
--- NOTE | 2019-11-07 07:20 | NUR ---
HAND-OFF: Report given to KIARA Jackson.
[2019-11-07 08:00] VITALS: BP 115/68
[2019-11-07] MEDS ORDERED: Pantoprazole Inj IVP SCH (09:00)
[2019-11-07] MEDS ORDERED: Losartan 25mg tab ORAL SCH (09:00)
[2019-11-07] MEDS: Carvedilol 6.25mg Tab ORAL SCH (09:08)
[2019-11-07] MEDS: Docusate Sod/Senna tab ORAL SCH (09:08)
[2019-11-07] MEDS: traMADol 50mg tab ORAL PRN ×2 (09:18→13:16)
--- NOTE | 2019-11-07 09:37 | General Progress Note ---
Assessment/Plan Problem List: (1) Cholecystitis ICD Codes: K81.9 - Cholecystitis, unspecified SNOMED: [id number] Assessment/Plan: Assessment/Plan Assessment/Plan: Assessment - abdominal pain, presumed due to abnormal GB - acute cholecystitis - s/p mayra - etiology of chest wall pain and TTP unknown - ABG noted Recommendations - po per surgery -cardiology in put appreciated -drop in H&H>> stable nowl -repeat cbc in am -transfuse to keep ghb above 7 -ppi Subjective Allergies: Coded Allergies: No Known Allergies (Unverified , 11/03/19) Objective Last 24 Hour Vital Signs Date Time Temp Pulse Resp B/P (MAP) Pulse Ox O2 Delivery O2 Flow Rate FiO2 11/07/19 09:09 115/68 11/07/19 09:08 76 115/68 11/07/19 08:00 98.1 76 18 115/68 (84) 100 11/07/19 06:03 97.3 11/07/19 00:00 97.3 89 18 127/87 (100) 98 11/06/19 20:48 Nasal Cannula 3.0 11/06/19 20:00 97.9 87 17 117/77 (90) 98 11/06/19 18:18 83 136/78 11/06/19 16:00 98.7 79 18 122/80 (94) 98 11/06/19 16:00 106 11/06/19 13:56 97.9 11/06/19 12:00 88 11/06/19 12:00 97.9 87 19 120/58 (78) 98 Intake and Output 11/06/19 11/07/19 19:00 07:00 Intake Total 295.0 ml 150 ml Balance 295.0 ml 150 ml Intake Oral 240 ml 150 ml IV Total 55.0 ml # Voids 1 3 Laboratory Tests 11/06/19 15:00: Urine Color Red, Urine Appearance Cloudy, Urine pH 5, Urine Specific [place] 1.010, Urine Protein 2+H, Urine Glucose (UA) Negative, Urine Ketones Negative, Urine Blood 5+H, Urine Nitrite Negative, Urine Bilirubin Negative, Urine Urobilinogen Normal, Urine Leukocyte Esterase 3+H, Urine RBC TntcH, Urine WBC 20 -30H, Urine Squamous Epithelial Cells Few, Urine Bacteria Occasional, Urine Trichomonas Occasional 11/06/19 18:20: White Blood Count 9.1, Red Blood Count 2.86L, Hemoglobin 8.5L, Hematocrit 26.8L , Mean Corpuscular Volume 94, Mean Corpuscular Hemoglobin 29.9, Mean Corpuscular Hemoglobin Concent 31.8L, Red Cell Distribution Width 15.4H, Platelet Count 224, Mean Platelet Volume 6.7, Neutrophils (%) (Auto) 72.5, Lymphocytes (%) (Auto) 16.1L, Monocytes (%) (Auto) 9.1, Eosinophils (%) (Auto) 1.5, Basophils (%) (Auto) 0.8 11/06/19 21:00: Urine Opiates Screen Negative, Urine Barbiturates Screen Negative, Phencyclidine (PCP) Screen Negative, Urine Amphetamines Screen Negative, Urine Benzodiazepines Screen Negative, Urine Cocaine Screen Negative, Urine Marijuana (THC) Screen Negative 11/07/19 05:45: White Blood Count 8.2, Red Blood Count 2.67L, Hemoglobin 8.2L, Hematocrit 25.5L , Mean Corpuscular Volume 96, Mean Corpuscular Hemoglobin 30.8, Mean Corpuscular Hemoglobin Concent 32.2, Red Cell Distribution Width 14.4, Platelet Count 228, Mean Platelet Volume 8.2, Neutrophils (%) (Auto) 75.2H, Lymphocytes ( %) (Auto) 14.6L, Monocytes (%) (Auto) 7.7, Eosinophils (%) (Auto) 2.1, Basophils (%) (Auto) 0.4, Sodium Level 137, Potassium Level 3.7, Chloride Level 102, Carbon Dioxide Level 29, Anion Gap 6, Blood Urea Nitrogen 10, Creatinine 0.9, Estimat Glomerular Filtration Rate > 60, Glucose Level 119H, Calcium Level 8.0L, Total Bilirubin 0.4, Aspartate Amino Transf (AST/SGOT) 29, Alanine Aminotransferase (ALT/SGPT) 39, Alkaline Phosphatase 72, Total Protein 6.3L, Albumin 2.1L, Globulin 4.2, Albumin/Globulin Ratio 0.5L Height (Feet): 5 Height (Inches): 2.00 Weight (Pounds): 169 General Appearance: alert EENT: normal ENT inspection Neck: supple Cardiovascular: normal rate Respiratory/Chest: lungs clear Abdomen: hypoactive bowel sounds Extremities: non-tender Vosoghi,Brandon MD Nov 07, 2019 09:37
--- NOTE | 2019-11-07 11:47 | Pulmonology Progress Note ---
Subjective ROS Limited/Unobtainable: Yes Interval Events: Reporting epigastric and left upper chest pain Constitutional: Reports: no symptoms HEENT: Repors: no symptoms Respiratory: Reports: no symptoms Cardiovascular: Reports: no symptoms Gastrointestinal/Abdominal: Reports: no symptoms Genitourinary: Reports: no symptoms Psychiatric: Reports: no symptoms Skin: Reports: no symptoms Musculoskeletal: Reports: no symptoms Allergies: Coded Allergies: No Known Allergies (Unverified , 11/03/19) Objective Last 24 Hour Vital Signs Date Time Temp Pulse Resp B/P (MAP) Pulse Ox O2 Delivery O2 Flow Rate FiO2 11/07/19 09:09 115/68 11/07/19 09:08 76 115/68 11/07/19 09:00 Room Air 11/07/19 08:00 98.1 76 18 115/68 (84) 100 11/07/19 06:03 97.3 11/07/19 00:00 97.3 89 18 127/87 (100) 98 11/06/19 20:48 Nasal Cannula 3.0 11/06/19 20:00 97.9 87 17 117/77 (90) 98 11/06/19 18:18 83 136/78 11/06/19 16:00 98.7 79 18 122/80 (94) 98 11/06/19 16:00 106 11/06/19 13:56 97.9 11/06/19 12:00 88 11/06/19 12:00 97.9 87 19 120/58 (78) 98 Intake and Output 11/06/19 11/07/19 19:00 07:00 Intake Total 295.0 ml 150 ml Balance 295.0 ml 150 ml Intake Oral 240 ml 150 ml IV Total 55.0 ml # Voids 1 3 General Appearance: no acute distress Respiratory: chest wall non-tender, lungs clear Cardiovascular: normal peripheral pulses Abdomen: normal bowel sounds Microbiology Date/Time Source Procedure Growth Status 11/06/19 15:00 Urine,Clean Catch Urine Culture - Preliminary NO GROWTH Resulted 11/04/19 15:40 Bile Gram Stain - Final Resulted 11/04/19 15:40 Bile Aerobic Culture - Preliminary NO GROWTH AFTER 48 HOURS Resulted 11/04/19 15:40 Bile Anaerobic Culture - Preliminary NO GROWTH AFTER 48 HOURS Resulted Laboratory Tests 11/06/19 15:00: Urine Color Red, Urine Appearance Cloudy, Urine pH 5, Urine Specific [place] 1.010, Urine Protein 2+H, Urine Glucose (UA) Negative, Urine Ketones Negative, Urine Blood 5+H, Urine Nitrite Negative, Urine Bilirubin Negative, Urine Urobilinogen Normal, Urine Leukocyte Esterase 3+H, Urine RBC TntcH, Urine WBC 20 -30H, Urine Squamous Epithelial Cells Few, Urine Bacteria Occasional, Urine Trichomonas Occasional 11/06/19 18:20: White Blood Count 9.1, Red Blood Count 2.86L, Hemoglobin 8.5L, Hematocrit 26.8L , Mean Corpuscular Volume 94, Mean Corpuscular Hemoglobin 29.9, Mean Corpuscular Hemoglobin Concent 31.8L, Red Cell Distribution Width 15.4H, Platelet Count 224, Mean Platelet Volume 6.7, Neutrophils (%) (Auto) 72.5, Lymphocytes (%) (Auto) 16.1L, Monocytes (%) (Auto) 9.1, Eosinophils (%) (Auto) 1.5, Basophils (%) (Auto) 0.8 11/06/19 21:00: Urine Opiates Screen Negative, Urine Barbiturates Screen Negative, Phencyclidine (PCP) Screen Negative, Urine Amphetamines Screen Negative, Urine Benzodiazepines Screen Negative, Urine Cocaine Screen Negative, Urine Marijuana (THC) Screen Negative 11/07/19 05:45: White Blood Count 8.2, Red Blood Count 2.67L, Hemoglobin 8.2L, Hematocrit 25.5L , Mean Corpuscular Volume 96, Mean Corpuscular Hemoglobin 30.8, Mean Corpuscular Hemoglobin Concent 32.2, Red Cell Distribution Width 14.4, Platelet Count 228, Mean Platelet Volume 8.2, Neutrophils (%) (Auto) 75.2H, Lymphocytes ( %) (Auto) 14.6L, Monocytes (%) (Auto) 7.7, Eosinophils (%) (Auto) 2.1, Basophils (%) (Auto) 0.4, Sodium Level 137, Potassium Level 3.7, Chloride Level 102, Carbon Dioxide Level 29, Anion Gap 6, Blood Urea Nitrogen 10, Creatinine 0.9, Estimat Glomerular Filtration Rate > 60, Glucose Level 119H, Calcium Level 8.0L, Total Bilirubin 0.4, Aspartate Amino Transf (AST/SGOT) 29, Alanine Aminotransferase (ALT/SGPT) 39, Alkaline Phosphatase 72, Total Protein 6.3L, Albumin 2.1L, Globulin 4.2, Albumin/Globulin Ratio 0.5L Current Medications Medications (Trade) Dose Ordered Sig/Misa Route PRN Reason Start Time Stop Time Status Last Admin Dose Admin Acetaminophen (Tylenol) 650 mg Q4H PRN ORAL Mild Pain (Pain Scale 1-3) 11/06/19 18:00 12/05/19 17:59 Acetaminophen (Tylenol) 650 mg Q4H PRN RECTAL FEVER 11/06/19 18:00 12/04/19 17:59 Carvedilol (Coreg) 6.25 mg BIDPC ORAL 11/06/19 18:00 12/05/19 20:59 11/07/19 09:08 Dextrose/ Electrolytes 1,000 ml @ 100 mls/hr Q10H IV 11/06/19 17:45 12/04/19 17:59 11/06/19 17:45 Hydromorphone HCl (Dilaudid) 0.5 mg Q8H PRN SUBQ Severe Pain (Pain Scale 7-10) 11/06/19 18:00 11/12/19 17:59 11/07/19 05:33 Losartan Potassium (Cozaar) 25 mg DAILY ORAL 11/07/19 09:00 12/06/19 08:59 11/07/19 09:09 Metoclopramide HCl (Reglan) 10 mg Q6H PRN IVP Nausea & Vomiting 11/06/19 18:00 12/04/19 17:59 Naloxone HCl (Narcan) 0.1 mg Q1M PRN IVP RR<10/min OR SBP<90 mmHg 11/06/19 17:45 11/08/19 17:44 Ondansetron HCl (Zofran) 4 mg Q6H PRN IVP Nausea & Vomiting 11/06/19 18:00 12/04/19 17:59 Pantoprazole (Protonix) 40 mg DAILY IVP 11/07/19 09:00 12/04/19 08:59 11/07/19 09:08 Piperacillin Sod/ Tazobactam Sod 3.375 gm/Sodium Chloride 110 ml @ 27.5 mls/hr Q8HR IVPB 11/06/19 22:00 11/10/19 21:59 11/07/19 05:08 Senna/Docusate Sodium (Alice-Colace) 1 tab TWICE A DAY ORAL 11/06/19 18:00 12/05/19 17:59 11/07/19 09:08 Tramadol HCl (Ultram) 50 mg Q4H PRN ORAL Moderate Pain (Pain Scale 4-6) 11/06/19 18:00 11/13/19 17:59 11/07/19 09:18 Assessment/Plan Assessment/Plan IMPRESSION: 1. Mild respiratory acidosis. 2. Abnormal chest x-ray with lucency over right eighth rib. 3. Status post cholecystectomy. DISCUSSION: At this point, the patient is asymptomatic from pulmonary standpoint. he rpain is epigatric and left upper chest. I will carefully monitor respiratory status, minimize narcotics and/or pain medications given mild respiratory acidosis. I will follow. Jimmy Fowler Omar Syed MD Nov 07, 2019 11:47
[2019-11-07 12:00] VITALS: BP 114/66
--- NOTE | 2019-11-07 12:19 | NUR ---
CHARGE NURSE NOTE: Spoke with (surgeon) regarding pt's discharge, he is on his way to see patient.
--- NOTE | 2019-11-07 12:34 | General Progress Note ---
Assessment/Plan Assessment/Plan: S: I am ok O: seems comfrotable, pain is well controlled . Tolerating PO diet PHYSICAL EXAMINATION:HEAD AND NECK: Atraumatic and normocephalic. CHEST: Clear to auscultation.HEART: S1, S2. Regular rate and rhythm. ABDOMEN: post op changes noted . No organomegaly. MUSCULOSKELETAL: No gross lateralized motor deficit. Meds and labs: reviewed and reconciled ASSESSMENT: 1. Acute cholecystitis. 2. Acute Sinus tachycardia 3. Obesity. 4. UTI. 4. Sepsis. 5. Hematuria/Vaginal bleed! 6. Acute Anemia Plan: pos transfusion on 1 units Post op pain managment anemia panel Once stable from surgical viewpoint may FU as o/p Subjective Allergies: Coded Allergies: No Known Allergies (Unverified , 11/03/19) Objective Last 24 Hour Vital Signs Date Time Temp Pulse Resp B/P (MAP) Pulse Ox O2 Delivery O2 Flow Rate FiO2 11/07/19 09:09 115/68 11/07/19 09:08 76 115/68 11/07/19 09:00 Room Air 11/07/19 08:00 98.1 76 18 115/68 (84) 100 11/07/19 06:03 97.3 11/07/19 00:00 97.3 89 18 127/87 (100) 98 11/06/19 20:48 Nasal Cannula 3.0 11/06/19 20:00 97.9 87 17 117/77 (90) 98 11/06/19 18:18 83 136/78 11/06/19 16:00 98.7 79 18 122/80 (94) 98 11/06/19 16:00 106 11/06/19 13:56 97.9 Intake and Output 11/06/19 11/07/19 19:00 07:00 Intake Total 295.0 ml 150 ml Balance 295.0 ml 150 ml Intake Oral 240 ml 150 ml IV Total 55.0 ml # Voids 1 3 Laboratory Tests 11/06/19 15:00: Urine Color Red, Urine Appearance Cloudy, Urine pH 5, Urine Specific [place] 1.010, Urine Protein 2+H, Urine Glucose (UA) Negative, Urine Ketones Negative, Urine Blood 5+H, Urine Nitrite Negative, Urine Bilirubin Negative, Urine Urobilinogen Normal, Urine Leukocyte Esterase 3+H, Urine RBC TntcH, Urine WBC 20 -30H, Urine Squamous Epithelial Cells Few, Urine Bacteria Occasional, Urine Trichomonas Occasional 11/06/19 18:20: White Blood Count 9.1, Red Blood Count 2.86L, Hemoglobin 8.5L, Hematocrit 26.8L , Mean Corpuscular Volume 94, Mean Corpuscular Hemoglobin 29.9, Mean Corpuscular Hemoglobin Concent 31.8L, Red Cell Distribution Width 15.4H, Platelet Count 224, Mean Platelet Volume 6.7, Neutrophils (%) (Auto) 72.5, Lymphocytes (%) (Auto) 16.1L, Monocytes (%) (Auto) 9.1, Eosinophils (%) (Auto) 1.5, Basophils (%) (Auto) 0.8 11/06/19 21:00: Urine Opiates Screen Negative, Urine Barbiturates Screen Negative, Phencyclidine (PCP) Screen Negative, Urine Amphetamines Screen Negative, Urine Benzodiazepines Screen Negative, Urine Cocaine Screen Negative, Urine Marijuana (THC) Screen Negative 11/07/19 05:45: White Blood Count 8.2, Red Blood Count 2.67L, Hemoglobin 8.2L, Hematocrit 25.5L , Mean Corpuscular Volume 96, Mean Corpuscular Hemoglobin 30.8, Mean Corpuscular Hemoglobin Concent 32.2, Red Cell Distribution Width 14.4, Platelet Count 228, Mean Platelet Volume 8.2, Neutrophils (%) (Auto) 75.2H, Lymphocytes ( %) (Auto) 14.6L, Monocytes (%) (Auto) 7.7, Eosinophils (%) (Auto) 2.1, Basophils (%) (Auto) 0.4, Sodium Level 137, Potassium Level 3.7, Chloride Level 102, Carbon Dioxide Level 29, Anion Gap 6, Blood Urea Nitrogen 10, Creatinine 0.9, Estimat Glomerular Filtration Rate > 60, Glucose Level 119H, Calcium Level 8.0L, Total Bilirubin 0.4, Aspartate Amino Transf (AST/SGOT) 29, Alanine Aminotransferase (ALT/SGPT) 39, Alkaline Phosphatase 72, Total Protein 6.3L, Albumin 2.1L, Globulin 4.2, Albumin/Globulin Ratio 0.5L Height (Feet): 5 Height (Inches): 2.00 Weight (Pounds): 169 Sagrario Grey MD Nov 07, 2019 12:34
--- NOTE | 2019-11-07 12:47 | General Surgery Progress Note ---
General Surgery-Progress Note Subjective Procedure Performed Laparoscopic Cholecystectomy Objective Last 24 Hour Vital Signs Date Time Temp Pulse Resp B/P (MAP) Pulse Ox O2 Delivery O2 Flow Rate FiO2 11/07/19 09:09 115/68 11/07/19 09:08 76 115/68 11/07/19 09:00 Room Air 11/07/19 08:00 98.1 76 18 115/68 (84) 100 11/07/19 06:03 97.3 11/07/19 00:00 97.3 89 18 127/87 (100) 98 11/06/19 20:48 Nasal Cannula 3.0 11/06/19 20:00 97.9 87 17 117/77 (90) 98 11/06/19 18:18 83 136/78 11/06/19 16:00 98.7 79 18 122/80 (94) 98 11/06/19 16:00 106 11/06/19 13:56 97.9 I&O Intake and Output 11/06/19 11/07/19 19:00 07:00 Intake Total 295.0 ml 150 ml Balance 295.0 ml 150 ml Intake Oral 240 ml 150 ml IV Total 55.0 ml # Voids 1 3 Dressing: dry Drains: none Respiratory: clear Abdomen: soft, flat, tenderness, decreased bowel sounds Extremities: no tenderness Laboratory Tests Test 11/06/19 15:00 11/06/19 18:20 11/06/19 21:00 11/07/19 05:45 Urine Color Red Urine Appearance Cloudy Urine pH 5 (4.5-8.0) Urine Specific [place] 1.010 (1.005-1.035) Urine Protein 2+ (NEGATIVE) H Urine Glucose (UA) Negative (NEGATIVE) Urine Ketones Negative (NEGATIVE) Urine Blood 5+ (NEGATIVE) H Urine Nitrite Negative (NEGATIVE) Urine Bilirubin Negative (NEGATIVE) Urine Urobilinogen Normal MG/DL (0.0-1.0) Urine Leukocyte Esterase 3+ (NEGATIVE) H Urine RBC Tntc /HPF (0 - 2) H Urine WBC 20-30 /HPF (0 - 2) H Urine Squamous Epithelial Cells Few /LPF (NONE/OCC) Urine Bacteria Occasional /HPF (NONE) Urine Trichomonas Occasional /HPF (NONE) White Blood Count 9.1 K/UL (4.8-10.8) 8.2 K/UL (4.8-10.8) Red Blood Count 2.86 M/UL (4.20-5.40) L 2.67 M/UL (4.20-5.40) L Hemoglobin 8.5 G/DL (12.0-16.0) L 8.2 G/DL (12.0-16.0) L Hematocrit 26.8 % (37.0-47.0) L 25.5 % (37.0-47.0) L Mean Corpuscular Volume 94 FL (80-99) 96 FL (80-99) Mean Corpuscular Hemoglobin 29.9 PG (27.0-31.0) 30.8 PG (27.0-31.0) Mean Corpuscular Hemoglobin Concent 31.8 G/DL (32.0-36.0) L 32.2 G/DL (32.0-36.0) Red Cell Distribution Width 15.4 % (11.6-14.8) H 14.4 % (11.6-14.8) Platelet Count 224 K/UL (150-450) 228 K/UL (150-450) Mean Platelet Volume 6.7 FL (6.5-10.1) 8.2 FL (6.5-10.1) Neutrophils (%) (Auto) 72.5 % (45.0-75.0) 75.2 % (45.0-75.0) H Lymphocytes (%) (Auto) 16.1 % (20.0-45.0) L 14.6 % (20.0-45.0) L Monocytes (%) (Auto) 9.1 % (1.0-10.0) 7.7 % (1.0-10.0) Eosinophils (%) (Auto) 1.5 % (0.0-3.0) 2.1 % (0.0-3.0) Basophils (%) (Auto) 0.8 % (0.0-2.0) 0.4 % (0.0-2.0) Urine Opiates Screen Negative (NEGATIVE) Urine Barbiturates Screen Negative (NEGATIVE) Phencyclidine (PCP) Screen Negative (NEGATIVE) Urine Amphetamines Screen Negative (NEGATIVE) Urine Benzodiazepines Screen Negative (NEGATIVE) Urine Cocaine Screen Negative (NEGATIVE) Urine Marijuana (THC) Screen Negative (NEGATIVE) Sodium Level 137 MMOL/L (136-145) Potassium Level 3.7 MMOL/L (3.5-5.1) Chloride Level 102 MMOL/L (98-107) Carbon Dioxide Level 29 MMOL/L (21-32) Anion Gap 6 mmol/L (5-15) Blood Urea Nitrogen 10 mg/dL (7-18) Creatinine 0.9 MG/DL (0.55-1.30) Estimat Glomerular Filtration Rate > 60 mL/min (>60) Glucose Level 119 MG/DL (74-106) H Calcium Level 8.0 MG/DL (8.5-10.1) L Total Bilirubin 0.4 MG/DL (0.2-1.0) Aspartate Amino Transf (AST/SGOT) 29 U/L (15-37) Alanine Aminotransferase (ALT/SGPT) 39 U/L (12-78) Alkaline Phosphatase 72 U/L (46-116) Total Protein 6.3 G/DL (6.4-8.2) L Albumin 2.1 G/DL (3.4-5.0) L Globulin 4.2 g/dL Albumin/Globulin Ratio 0.5 (1.0-2.7) L Assessment Post-op Diagnosis impacted stone in neck of gall bladder Plan Additional Comments discharge to home Janey Ulloa MD Nov 07, 2019 12:47
--- NOTE | 2019-11-07 12:49 | Discharge Instructions ---
Discharge Instructions Discharge Instructions Follow up with: my office one week Diet: low fat Resume Normal Activity?: Yes Activity: as tolerated For Surgical Patients Dressing Care: other - will be removed by surgeon May shower: Yes For Congestive Heart Failure Reminder Report to your physician any weight gain of 5 pounds or more in one week. Janey Ulloa MD Nov 07, 2019 12:49
[2019-11-07] MEDS ORDERED: CEPHALEXIN500 MG ORAL (14:03)
[2019-11-07] MEDS ORDERED: TRAMADOL HCL50 MG ORAL (14:05)
[2019-11-07] MEDS ORDERED: COREG6.25 MG ORAL (14:08)
[2019-11-07] MEDS ORDERED: COZAAR25 MG ORAL (14:09)
--- NOTE | 2019-11-07 15:00 | NUR ---
NURSE NOTES: Patient is in stable condition for DC home today. Assess pt from head to toe, pt is AAO x 4, VSS, on RA with no s/s of respiratory distress, able to make needs known, ambulatory with steady gait. Pain manageable with medication regimen prescrived. Pt is continent x 2. Skin intact. PIV on L AC removed. IV site with no s/s of infection. Reconciled belongings with patient and she signed belongings list form. Provided education on disease process, dietary modification, and s/s to report to MD and gave handouts to patient. Pt instructed to make an appointment with surgeon, Dr. Bean, for f/u and contact info and address provided. [facility] brought medication for patient's antibiotic, bowel regimen, and pain medication. Dr. Grey called in patient's blood pressure medications to her [facility] pharmacy. Pt instructed to bulk picker Rx and take medications as ordered. Pt's mother, Carrie, picked up patient via private vehicle.
--- NOTE | 2019-11-09 09:24 | Discharge Summary ---
Discharge Summary Discharge Summary _ DATE OF ADMISSION 11/03/2019 DATE OF DISCHARGE: 11/07/2019 DISCHARGED BY: Dr. Grey REASON FOR ADMISSION: 39 years old female with no significant past medical history, presented to emergency department complaining of abdominal pain for the last 10 days. Pain described as epigastric, burning, nonradiating, 8 out of 10. Patient denies fever and chills. Patient denied chest pain and shortness of breath. Patient denied diarrhea. Upon evaluation patient was tachycardic with heart rate 124, no fevers. Laboratory work-up revealed leukocytosis WBC 13.1, stable hemoglobin , hematocrit and platelet count. Urinalysis revealed pyuria , moderate bacteria , +4 ketones , +3 leukocyte esterase. Potassium 3.2. Stable other electrolytes and renal parameters. Glucose 76. Stable LFT and lipase. CT scan of the abdomen and pelvis revealed cholelithiasis with gallbladder distention, gallbladder wall thickening and pericholecystic inflammatory changes , suggesting acute cholecystitis. No intrahepatic or extrahepatic biliary ductal dilatation. In emergency department patient received fluids, analgesic, antiemetic , GI prophylaxis , empiric antibiotics and admitted to medical surgical floor for further management. CONSULTANTS: laboratory machinist Dr. Bautista pulmonary Dr. Doty ID specialist Dr. Silvestre GI specialist Dr. Crane surgery [facility] COURSE: Patient admitted and was kept n.p.o. Patient started on empiric antibiotics and IV fluids. Surgeon seen and evaluated patient. Decision was made to perform a laparoscopic cholecystectomy. The risks and benefits were explained to patient, who consented to surgery. Patient subsequently undergone on laparoscopic cholecystectomy and lysis of adhesion. During surgery noted impacted stone in the neck of the gallbladder. Patient tolerated procedure well. Course of recovery was uneventful. Pain management was addressed. Supportive care provided. Incentive spirometry encouraged while in the bed. Patient was ambulated. Empiric antibiotic continued. Patient slowly started on diet as tolerated. Urine culture revealed Diphtheroids and repeated urine culture was negative. Rapid COVID-19 was negative. Operative culture was negative. Leukocytosis resolved. No fevers. Hemoglobin and hematocrit were closely monitored with goal to keep hemoglobin above 7. Patient noted to have a drop in hemoglobin on 11/05 with hemoglobin 7.8 and hematocrit 24.1. Patient undergone transfusion of 1 unit of packed red blood cells. Hemoglobin hematocrit were closely monitored with goal to keep hemoglobin above 7. Anemia work-up revealed evidence of anemia of chronic disease. Patient to follow-up with [facility] as outpatient. Patient noted to have sinus tachycardia . Sinus tachycardia resolved, most probably was due to hypovolemia. Echocardiogram revealed cardiomyopathy with anterior wall hypokinesis and ejection fraction of 40%. No signs of rising intracardiac filling pressures. Normal diastolic function. Wall motion abnormality in the anterior wall. Troponin was negative. Guideline directed medical therapy for congestive heart failure initiated with beta-forrest and angiotensin receptor forrest. Lasix was given one time. No evidence of fluid overload. Lipid panel revealed low HDL. Patient was advised on low-fat low-cholesterol diet and ways to improve HDL. ABG revealed mild respiratory acidosis with pH 7.33. No hypercapnia. Venous duplex bilateral lower extremity revealed no evidence of acute DVT. Chest x-ray and x-ray of the ribs revealed subtle lucency along the lateral margin of the right eighth rib , possibly representing a nondisplaced fracture. That was done after patient was complaining of chest wall pain and tenderness to palpation. Pain management was addressed . Patient condition stabilized and she was ready for discharge home. FINAL DIAGNOSES: Acute cholecystitis with impacted stone in the neck of the gallbladder Status post laparoscopic cholecystectomy, lysis of adhesion Possible UTI Sepsis Obesity Anemia status post blood transfusion Hematuria/vaginal bleeding Abnormal chest x-ray with lucency over the right 8 rib, possibly nondispalced frcature DISCHARGE MEDICATIONS: See Medication Reconciliation list. DISCHARGE INSTRUCTIONS: Patient was discharged home. Follow-up with a primary care provider in 1 week. Recommended to follow up with [facility]. Patient was also advised to follow up with Rib X ray. I have been assigned to dictate discharge summary for this account. I was not involved in the patient's management. Jeannette Chen NP Nov 09, 2019 09:24
== END 2019-11-07 15:15 | disposition home or self-care (01) | DRG 710 ==
LOC: EDBD 07:00 → EMR 07:44 → 4E 11:09 → EDBEDREQ 11:20 → 2E 11-05 03:27 → 4E 11-06 18:01
PROC: 0FT44ZZ Resection of Gallbladder, Percutaneous Endoscopic Approach (ICD-10-PCS; principal; 2019-11-04 14:00)
PROC: 30233N1 Transfusion of Nonautologous Red Blood Cells into Peripheral Vein, Percutaneous Approach (ICD-10-PCS; 2019-11-06)
DX: A41.9 Sepsis, unspecified organism (principal); K80.10 Calculus of gallbladder with chronic cholecystitis without obstruction; N39.0 Urinary tract infection, site not specified; E66.9 Obesity, unspecified; Z68.30 Body mass index [BMI] 30.0-30.9, adult; I42.9 Cardiomyopathy, unspecified; E78.5 Hyperlipidemia, unspecified; K21.9 Gastro-esophageal reflux disease without esophagitis; R31.9 Hematuria, unspecified; N93.9 Abnormal uterine and vaginal bleeding, unspecified; D64.9 Anemia, unspecified; S22.31XA Fracture of one rib, right side, initial encounter for closed fracture; X58.XXXA Exposure to other specified factors, initial encounter
CPT/HCPCS: 36415; 36600; 71045; 74176; 80053; 80061; 80307; 81003; 81025; 82150; 82803; 83036; 83540; 83550; 83690; 83735; 83880; 84484; 85007; 85025; 85610; 85730; 86850; 86900; 86901; 86920; 87070; 87075; 87086; 87205; 93306; 93970; 94003; 94150; 96361; 96365; 96367; 96375; 99285; C9399; J2250; J2405; J2710; J2765; J7030; J8499; U0002